=== PATIENT | female | born 1940 | race Caucasian/White ===

== ENCOUNTER 2019-01-14 23:03 | Emergency (ER) | payer OTHER ==
--- OUTSIDE RECORDS SUMMARY | 2019-01-14 23:08 | XMS REPORT | Continuity of Care Document ---
:1940 Author Organization [facility] Information [place] Care Team Providers Name Role Phone [facility] Information [place] Unavailable Unavailable Problems Problem Status Onset Classification Date Comments Source Date Reported R51 - HEADACHE Active 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 012 [facility] Brain aneurysm Resolved Problem 07/06/2018 [facility] 011 Neuro, OP Imaging - [facility] Operative procedure on Active Problem 10/17/2011 [facility] cerebral aneurysm [address] [place] [address] Operative procedure on Active Problem 07/06/2018 [facility] cerebral aneurysm 011 Neuro, OP Imaging - [facility] RIGHT SIDED Active [facility] COMMUNICATING SEGMENT [address] [place] [address] Center Benign essential Active Problem 07/06/2018 Data [facility] hypertension1 009 migrated Neuro,[facility] from [facility] OP Centricity Imaging - on 11/10/14. [facility] Dermatitis3 Active Problem 07/06/2018 Data [facility] 008 migrated Neuro,[facility] from [facility] OP Centricity Imaging - on 11/10/14. [facility] Overweight6 Active Problem 07/06/2018 Data [facility] 008 migrated Neuro,[facility] from [facility] OP Centricity Imaging - on 11/10/14. [facility] Degenerative joint Active Problem 07/06/2018 Data [facility] disease involving 007 migrated Neuro, multiple joints2 from [facility] OP Centricity Imaging - on 11/10/14. [facility] Knee joint pain Resolved Problem 07/06/2018 [facility] 005 Neuro, OP Imaging - [facility] Cerebral angiogram Active Problem 10/17/2011 [facility] Cerebral angiogram Active Problem 07/06/2018 [facility] Neuro, OP Imaging - [facility] Dyslipidemia4 Active Problem 07/06/2018 Data [facility] migrated Neuro, from GE OP Centricity Imaging - on 11/10/14. 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 [place] Hypercholesterolemia Active Problem 07/06/2018 [facility] Neck pain Active Problem 07/06/2018 [facility] - [place] Osteoarthritis Active Problem 07/06/2018 [facility] Simple obesity Active Problem 07/06/2018 [facility] Imaging - [place] NONRUPT CEREBRAL Active [facility] ADMINISTRTVE ENCOUNT Active [facility] Medications Medication Details Route Status Patient Ordering Order Source Instructions Provider Date Aspirin 325 MG 325 mg, 1 tab, No Longer Enteric Coated Route: PO, Active 2018 [place] Tablet Drug form: [facility] ECTAB, Daily, Dosing Weight 87.6, kg, Start date: 07/05/18 9:00:00 HERBICIDE SPRAYER, Duration: 30 day, Stop date: 08/03/18 9:00:00 CSTNotes: (Do Not Crush) Do not crush or chew. celecoxib 200 mg, 2 cap, Inactive Route: PO, 2018 [place] Drug form: [facility] CAP, BID, Dosing Weight 87.6, kg, Start date: 07/04/18 17:00:00 HERBICIDE SPRAYER, Duration: 30 day, Stop date: 08/03/18 9:00:00 CSTNotes: NSAID. Please check indication. Not for seizure. (Same As: CeleBREX ) Zofran 4 mg, 1 tab, Inactive Route: PO, 2019 [place] Drug form: [facility] TAB, Q8H, Dosing Weight 87.6, kg, Start date: 07/04/18 16:00:00 HERBICIDE SPRAYER, Duration: 30 day, Stop date: 08/03/18 8:00:00 CSTNotes: (Same as: Zofran) Ondansetron 4 mg, Route: Inactive PO, Q8H, 2019 [place] Dosing Weight Hospital 87.6, kg, Start date: 07/04/18 16:00:00 HERBICIDE SPRAYER, Duration: 30 day, Stop date: 08/03/18 8:00:00 HERBICIDE SPRAYER Acetaminophen 1,000 mg, 2 Inactive tab, Route: 2019 [place] PO, Drug form: Hospital TAB, TID, Dosing Weight 87.6, kg, Start date: 07/04/18 13:00:00 HERBICIDE SPRAYER, Duration: 30 day, Stop date: 08/03/18 9:00:00 CSTNotes: Max acetaminophen 4000 mg/day (4 gm/day). (Same as: Tylenol Extra Strength) tramadol 100 mg, 2 tab, Inactive hydrochloride 50 Route: PO, 2019 [place] MG Oral Tablet Drug form: Hospital TAB, Q6H, Dosing Weight 87.6, kg, Start date: 07/04/18 12:00:00 HERBICIDE SPRAYER, Duration: 30 day, Stop date: 08/03/18 6:00:00 CSTNotes: Not to exceed 400mg/day. (Same As: Ultram) tramadol 100 mg=2 tab, Active hydrochloride 50 PO, Q6H, # 100 2019 [place] MG Oral Tablet tab, 0 Hospital Refill(s) celecoxib 200 mg 200 mg, PO, Active oral capsule BID, # 60 2019 [place] caplet, 1 Hospital Refill(s), Pharmacy: [place] [id number] Acetaminophen 1,000 mg, PO, Active TID, 0 2019 [place] Refill(s) [facility] Aspirin 325 MG 325 mg, PO, Active Enteric Coated Daily, 0 2019 [place] Tablet Refill(s) [facility] ketOROLAC 30 15 mg, 0.5 mL, Inactive mg/mL injectable Route: IVP, 2019 [place] solution Drug form: Hospital INJ, Q6H, Dosing Weight 87.6, kg, PRN Pain Score 7-10, Start date: 07/04/18 10:15:00 HERBICIDE SPRAYER, Duration: 1 doses or times, Stop date: Limited # of timesNotes: (Same as:Toradol) IV bolus must be given >15 seconds. Give IM administration slowly and deeply into the muscle. Not for use > 4 days MEDICATION WASTE Product Size: 30 mg Product Wasted: ___ mg Aluminum 30 mL, Route: Inactive Hydroxide 40 PO, Drug Form: 2019 [place] MG/ML / Magnesium SUSP, Dosing Hospital Hydroxide 40 Weight 87.6, MG/ML / kg, Q4H, PRN Simethicone 4 Indigestion, MG/ML Oral Start date: Suspension 07/04/18 10:15:00 HERBICIDE SPRAYER, Duration: 30 day, Stop date: 08/03/18 10:14:00 CSTNotes: (aluminum hydroxide-magn esium hyd-simethicon e [phone]/5 ml 30 ml ud WILLIAM) Morphine 2 mg, 1 mL, Inactive Route: IVP, 2018 [place] Drug form: [facility] SOLN, Q4H, Dosing Weight 87.6, kg, PRN Pain Score 7-10, Start date: 07/04/18 10:15:00 HERBICIDE SPRAYER, Stop date: 07/04/18 22:00:00 HERBICIDE SPRAYER Oxycodone 5 mg, 1 tab, Inactive Hydrochloride 5 Route: PO, 2019 [place] MG Oral Tablet Drug form: [facility] TAB, Q4H, Dosing Weight 87.6, kg, PRN Pain Score 4-6, Start date: 07/04/18 10:15:00 HERBICIDE SPRAYER, Duration: 30 day, Stop date: 08/03/18 10:14:00 CSTNotes: (Same as: Roxicodone) Ancef 2 gm, 20 mL, Inactive Route: IVPB, 2018 [place] Drug form: [facility] INJ, ONCE, Dosing Weight 87.6, kg, Start date: 07/04/18 10:13:00 HERBICIDE SPRAYER, Stop date: 07/04/18 10:13:00 HERBICIDE SPRAYER, ABX Indication: Surgical ProphylaxisNot es: (Same As: Ancef) Inject direct IV slowly over 5 minutes. Cefazolin 1gm in sterile water 10mL 1/2 NS 1,000 mL 1,000 mL, Inactive Rate: 75 2019 [place] ml/hr, Infuse Hospital over: 13.3 hr, Route: IV, Dosing Weight 87.6 kg, Total Volume: 1,000, Start date: 07/04/18 10:13:00 HERBICIDE SPRAYER, Duration: 30 day, Stop date: 08/03/18 10:12:00 HERBICIDE SPRAYER, 2, m2 Promethazine 12.5 mg, 0.5 Inactive mL, Route: IM, 2018 [place] Drug form: Hospital INJ, ONCE, Dosing Weight 87.6, kg, PRN Nausea & Vomiting, Start date: 07/04/18 9:51:00 CSTNotes: Do not give IV push. (Same as: Phenergan) Meperidine 12.5 mg, 0.5 Inactive mL, Route: 2019 [place] IVP, Drug Hospital form: INJ, Q30Min, Dosing Weight 87.6, kg, PRN Other -See Comment, For shivering, Start date: 07/04/18 9:51:00 HERBICIDE SPRAYER, Duration: 2 doses or times, Stop date: Limited # of timesNotes: (Same as: Demerol) "Use Precaution in Elderly, Seizure disorders, and Renal impairment" Ondansetron 4 mg, 2 mL, Inactive Route: IVP, 2018 [place] Drug form: Hospital INJ, ONCE, Dosing Weight 87.6, kg, PRN Nausea & Vomiting, Start date: 07/04/18 9:51:00 CSTNotes: (Same as: Zofran) MEDICATION WASTE Product Size: 4 mg Product Wasted: ___ mg Albuterol 0.83 2.49 mg, 3 mL, Inactive MG/ML Inhalant Route: NEB, 2018 [place] Solution Drug form: Hospital SOLN, Q20Min, Dosing Weight 87.6, kg, PRN Wheezing, Priority: STAT, Start date: 07/04/18 9:51:00 HERBICIDE SPRAYER, Duration: 30 day, Stop date: 08/03/18 9:50:00 CSTNotes: SEE RT DOCUMENTATION (Same as: Proventil) Diphenhydramine 12.5 mg, 0.25 Inactive mL, Route: 2019 [place] IVP, Drug Hospital form: INJ, Q6H, Dosing Weight 87.6, kg, PRN Itching, Start date: 07/04/18 9:51:00 HERBICIDE SPRAYER, Duration: 30 day, Stop date: 08/03/18 9:50:00 CSTNotes: (Same as: Benadryl) Naloxone 0.4 mg, 1 mL, Inactive Route: IVP2018 [place] Drug form: Hospital INJ, Q2MIN, Dosing Weight 87.6, kg, PRN Narcotic Reversal, Start date: 07/04/18 9:51:00 HERBICIDE SPRAYER, Duration: 8 doses or times, Stop date: Limited # of timesNotes: Same as Narcan Flumazenil 0.2 mg, 2 mL, Inactive Route: IVP2018 [place] Drug form: Hospital INJ, PRN, Dosing Weight 87.6, kg, PRN Benzodiazepine Reversal, Initial dose, Start date: 07/04/18 9:51:00 HERBICIDE SPRAYER, Duration: 30 day, Stop date: 08/03/18 9:50:00 CSTNotes: (Same as: Romazicon) Morphine 4 mg, 1 mL, Inactive Route: IVP2018 [place] Drug form: Hospital SOLN, Q5Min, Dosing Weight 87.6, kg, PRN Pain Score 7-10, Start date: 07/04/18 9:51:00 HERBICIDE SPRAYER, Duration: 3 doses or times, Stop date: 07/04/18 22:00:00 CSTNotes: (Same as:MORPhine Sulfate) Hydralazine 10 mg, 0.5 mL, Inactive Route: IVP2018 [place] Drug form: Hospital INJ, Q20Min, Dosing Weight 87.6, kg, PRN Elevated BP, Start date: 07/04/18 9:51:00 HERBICIDE SPRAYER, Duration: 2 doses or times, Stop date: Limited # of timesNotes: (Same as: Apresoline) Push over 5 minutes Ketorolac 15 mg, 0.5 mL, Inactive Route: IVP2018 [place] Drug form: Hospital INJ, ONCE, Dosing Weight 87.6, kg, Start date: 07/04/18 9:51:00 HERBICIDE SPRAYER, Stop date: 07/04/18 9:51:00 CSTNotes: (Same as:Toradol) IV bolus must be given >15 seconds. Give IM administration slowly and deeply into the muscle. Not for use > 4 days MEDICATION WASTE Product Size: 30 mg Product Wasted: _15__ mg Acetaminophen 1,000 mg, 2 Inactive tab, Route: 2019 [place] PO, Drug form: Hospital TAB, ONCE, Dosing Weight 87.6, kg, PRN Pain Score 1-3, Start date: 07/04/18 9:51:00 CSTNotes: Max acetaminophen 4000 mg/day (4 gm/day). (Same as: Tylenol Extra Strength) Metoprolol 1 mg, 1 mL, Inactive Route: IVP, 2018 [place] Drug form: Hospital INJ, Q5Min, Dosing Weight 87.6, kg, PRN Other -See Comment, Start date: 07/04/18 9:51:00 HERBICIDE SPRAYER, Duration: 5 doses or times, Stop date: Limited # of timesNotes: (Same as: Lopressor) Push over 2 minutes Sodium Chloride Route: IV, Inactive 0.9% IV (ANES) 50 Total Volume: 2018 [place] mL 50, Start Hospital date: 07/04/18 9:27:00 HERBICIDE SPRAYER, Stop date: 07/04/18 10:27:00 HERBICIDE SPRAYER Sodium Chloride Route: IV, Inactive 0.9% IV (ANES) Total Volume: 2018 [place] 1000 mL 1,000, Start Hospital date: 07/04/18 9:04:00 HERBICIDE SPRAYER, Stop date: 07/04/18 10:04:00 HERBICIDE SPRAYER glycopyrrolate Route: IV, Inactive (ANES) Drug form: 2018 [place] INJ, ONCE, Hospital Stop date: 07/04/18 8:54:00 HERBICIDE SPRAYER dexamethasone Route: IV, Inactive (ANES) Drug form: 2019 [place] INJ, ONCE, Hospital Stop date: 07/04/18 8:54:00 HERBICIDE SPRAYER ondansetron Route: IV, Inactive (ANES) Drug form: 2019 [place] INJ, ONCE, Hospital Stop date: 07/04/18 8:54:00 HERBICIDE SPRAYER famotidine (ANES) Route: IV, Inactive Drug form: 2019 [place] INJ, ONCE, Hospital Stop date: 07/04/18 8:54:00 HERBICIDE SPRAYER phenylephrine Route: IV, Inactive (ANES) Drug form: 2019 [place] INJ, ONCE, Hospital Stop date: 07/04/18 8:49:00 HERBICIDE SPRAYER methylergonovine Route: IM, Inactive (ANES) Drug form: 2019 [place] INJ, ONCE, Hospital Stop date: 07/04/18 8:29:00 HERBICIDE SPRAYER tranexamic acid Route: IV, Inactive (ANES) Drug form: 2019 [place] INJ, ONCE, Hospital Stop date: 07/04/18 8:24:00 HERBICIDE SPRAYER ePHEDrine (ANES) Route: IV, Inactive Drug form: 2019 [place] INJ, ONCE, Hospital Stop date: 07/04/18 8:24:00 HERBICIDE SPRAYER ceFAZolin (ANES) Route: IV, Inactive Drug form: 2019 [place] INJ, ONCE, Hospital Stop date: 07/04/18 7:59:00 HERBICIDE SPRAYER midazolam (ANES) Route: IV, Inactive Drug form: 2019 [place] SOLN, ONCE, Hospital Stop date: 07/04/18 7:59:00 HERBICIDE SPRAYER bupivacaine Route: Inactive (ANES) INTRATHECAL, 2019 [place] Drug Form: Hospital INJ, ONCE, Stop date: 07/04/18 7:54:00 HERBICIDE SPRAYER propofol (ANES) Route: IV, Inactive 10 mg Drug form: 2018 [place] INJ, Start Hospital date: 07/04/18 7:30:00 HERBICIDE SPRAYER, Stop date: 07/04/18 8:30:00 HERBICIDE SPRAYER Lactated Ringers Route: IV, Inactive Injection IV Total Volume: 2018 [place] (ANES) 1000 mL 1,000, Start Hospital date: 07/04/18 7:12:00 HERBICIDE SPRAYER, Stop date: 07/04/18 8:12:00 HERBICIDE SPRAYER Lyrica 75 mg, 1 cap, Inactive Route: PO, 2018 [place] Drug form: Hospital CAP, PRE OP, Start date: 07/04/18 6:00:00 HERBICIDE SPRAYER, Duration: 1 doses or timesNotes: (Same as: Lyrica) CeleBREX 400 mg, 4 cap, Inactive Route: PO, 2018 [place] Drug form: Hospital CAP, PRE OP, Start date: 07/04/18 6:00:00 HERBICIDE SPRAYER, Duration: 1 doses or timesNotes: NSAID. Please check indication. Not for seizure. (Same As: CeleBREX ) acetaminophen 1,000 mg, 2 Inactive tab, Route: 2019 [place] PO, Drug form: Hospital TAB, PRE OP, Start date: 07/04/18 6:00:00 HERBICIDE SPRAYER, Duration: 1 doses or timesNotes: Max acetaminophen 4000 mg/day (4 gm/day). (Same as: Tylenol Extra Strength) ceFAZolin 2 gm, 20 mL, Inactive Route: IV, 2018 [place] Drug form: Hospital INJ, PRE OP, Start date: 07/04/18 6:00:00 HERBICIDE SPRAYER, Duration: 1 doses or times, ABX Indication: Surgical ProphylaxisNot es: (Same As: Ancef) Inject direct IV slowly over 5 minutes. Cefazolin 1gm in sterile water 10mL Calcium Chloride 1,000 mL, Inactive 0.0014 MEQ/ML / Rate: 25 2018 [place] Potassium ml/hr, Infuse Hospital Chloride 0.004 over: 40 hr, MEQ/ML / Sodium Route: IV, Chloride 0.103 Dosing Weight MEQ/ML / Sodium 87.6 kg, Total Lactate 0.028 Volume: 1,000, MEQ/ML Injectable Start date: Solution 07/04/18 5:45:00 HERBICIDE SPRAYER, Duration: 30 day, Stop date: 08/03/18 5:44:00 HERBICIDE SPRAYER, 2, m2 Vitamin D2 50,000 50,000 Active intl units oral IntlUnit=1 2018 [place] capsule cap, PO, Hospital Daily, 0 Refill(s) Vitamin D2 PO, 0 Inactive Refill(s) 2019 [facility] nebivolol 20 MG 20 mg=1 tab, Active Oral Tablet PO, Daily, 0 2019 [place] [Bystolic] Refill(s) Hospital Hydrochlorothiazi 1 tab, PO, Active de 25 MG / Daily, 0 2019 [place] Losartan Refill(s) [facility] Potassium 100 MG Oral Tablet Flumazenil 0.2 mg, 2 mL, Inactive Route: IVP, 2016 [place] Drug form: Hospital INJ, PRN, Dosing Weight 84.091, kg, PRN Benzodiazepine Reversal, Initial dose, Start date: 01/21/17 11:43:00 CDT, Duration: 30 day, Stop date: 02/20/17 11:42:00 CDTNotes: (Same as: Romazicon) Naloxone 0.4 mg, 1 mL, Inactive Route: IVP2016 [place] Drug form: Hospital INJ, Q2MIN, Dosing Weight 84.091, kg, PRN Narcotic Reversal, Start date: 01/21/17 11:43:00 CDT, Duration: 8 doses or times, Stop date: Limited # of timesNotes: Same as Narcan Ondansetron 4 mg, 2 mL, Inactive Route: IVP2016 [place] Drug form: Hospital INJ, ONCE, Dosing Weight 84.091, kg, PRN Nausea & Vomiting, Start date: 01/21/17 11:43:00 CDTNotes: (Same as: Zofran) MEDICATION WASTE Product Size: 4 mg Product Wasted: ___ mg Ondansetron 4 mg, 2 mL, Inactive Route: IVP2016 [place] Drug form: Hospital INJ, ONCE, Dosing Weight 84.091, kg, PRN Nausea & Vomiting, Start date: 01/21/17 11:32:00 CDTNotes: (Same as: Zofran) MEDICATION WASTE Product Size: 4 mg Product Wasted: ___ mg Flumazenil 0.2 mg, 2 mL, Inactive Route: IVP2016 [place] Drug form: Hospital INJ, PRN, Dosing Weight 84.091, kg, PRN Benzodiazepine Reversal, Initial dose, Start date: 01/21/17 11:32:00 CDT, Duration: 30 day, Stop date: 02/20/17 11:31:00 CDTNotes: (Same as: Romazicon) Naloxone 0.4 mg, 1 mL, Inactive Route: IVP2016 [place] Drug form: Hospital INJ, Q2MIN, Dosing Weight 84.091, kg, PRN Narcotic Reversal, Start date: 01/21/17 11:32:00 CDT, Duration: 8 doses or times, Stop date: Limited # of timesNotes: Same as Narcan Calcium Chloride 1,000 mL, Inactive 0.0014 MEQ/ML / Rate: 25 2016 [place] Potassium ml/hr, Infuse Hospital Chloride 0.004 over: 40 hr, MEQ/ML / Sodium Route: IV, Chloride 0.103 Dosing Weight MEQ/ML / Sodium 84.091 kg, Lactate 0.028 Total Volume: MEQ/ML Injectable 1,000, Start Solution date: 01/21/17 9:10:00 CDT, Duration: 12 hr, Stop date: 01/21/17 21:09:00 CDT Folic Acid 0.4 MG 0.4 mg=1 tab, Active Oral Tablet PO, Daily, # 2017 [place] 100 tab, 0 Hospital Refill(s) pitavastatin 2 MG 2 mg=1 tab, Active Oral Tablet PO, Bedtime, # 2017 [place] [Livalo] 30 tab, 3 Hospital Refill(s) Chlorthalidone 25 25 mg=1 tab, Active MG Oral Tablet PO, Daily, # 2017 [place] 30 tab, 0 Hospital Refill(s) Zofran 4 mg, 2 mL, IVP No Longer Ramona [facility] Route: IVP, Active 2011 [facility] Drug form: Center INJ, Q4H, PRN Nausea & Vomiting, Start date: 10/15/11 12:21:00, Duration: 30 day, Stop date: 11/14/11 12:20:00 Sodium Chloride 1,000 mL, IV No Longer Ramona Kathryn 0.9% IV 1,000 mL Rate: 125 Active 2011 [facility] ml/hr, Infuse Center over: 8 hr, Route: IV, Total Volume: 1,000, Start date: 10/15/11 12:10:00, Duration: 30 day, Stop date: 11/14/11 12:09:00 Bystolic 10 mg 10 mg, 1 tab, PO Active [facility] oral tablet PO, Daily, 2011 Medical tab, Center Substitution Allowed, TAB Zocor 20 mg, 1 tab, PO No Longer Voda Kathryn Route: PO, Active 2010 [facility] Drug form: Center TAB, Bedtime, Start date: 04/30/11 21:00:00, Duration: 30 day, Stop date: 05/29/11 21:00:00 Zetia 10 mg, 1 tab, PO No Longer Voda [facility] Route: PO, Active 2010 Medical Drug form: [place] TAB, Bedtime, Start date: 04/30/11 21:00:00, Duration: 30 day, Stop date: 05/29/11 21:00:00 MaxEPA 2 gm, 2 cap, PO No Longer Restrepo [facility] Route: PO, Active 2010 Medical Drug form: [place] CAP, BID, Start date: 04/30/11 11:00:00, Duration: 30 day, Stop date: 05/30/11 9:00:00 Exforge 10 mg-320 1 tab, Route: PO No Longer Voda [place] mg oral tablet PO, Daily, Active 2010 Medical Start date: [place] 04/30/11 9:00:00, Duration: 30 day, Stop date: 05/29/11 9:00:00 Diovan 320 mg, 2 tab, PO No Longer Lombardi [facility] Route: PO, Active 2010 Medical Drug form: [place] TAB, Daily, Start date: 04/30/11 9:00:00, Duration: 30 day, Stop date: 05/29/11 9:00:00 Norvasc 10 mg, 1 tab, PO No Longer Lombardi [facility] Route: PO, Active 2010 Medical Drug form: [place] TAB, Daily, Start date: 04/30/11 9:00:00, Duration: 30 day, Stop date: 05/29/11 9:00:00 Vytorin 10/20 1 tab, Route: PO No Longer Voda [facility] PO, Daily, Active 2010 Medical Start date: [place] 04/30/11 9:00:00, Duration: 30 day, Stop date: 05/29/11 9:00:00 omega-3 Route: PO, PO No Longer Restrepo [facility] polyunsaturated Drug Form: Active 2010 Medical fatty acids with CAP, BID, [place] Vitamin B Complex Start date: oral capsule 04/30/11 9:00:00, Duration: 30 day, Stop date: 05/29/11 17:00:00 docusate sodium 100 mg, 1 cap, PO Active [place] 100 mg oral PO, Q12H, 40 2010 Medical capsule cap, [place] Substitution Allowed, CAP acetaminophen-hyd 2 tab, PO, PO Active Lawrence Kathryn rocodone 325 mg-5 Q4H, PRN, 30 2010 Medical mg oral tablet tab, Pain Center Score 1-3, Substitution Allowed, Maintenance, (not to exceed 4000 mg acetaminophen per day), TAB(not to exceed 4000 mg acetaminophen per day) docusate 100 mg, 1 cap, PO No Longer Nando [facility] Route: PO, Active 2010 Medical Drug form: [place] CAP, Q12H, Start date: 04/29/11 21:00:00, Duration: 30 day, Stop date: 05/29/11 9:00:00 Zofran 4 mg, 2 mL, IVP No Longer Nando [facility] Route: IVP, Active 2010 Medical Drug form: [place] INJ, Q8H, PRN Nausea, Start date: 04/29/11 17:16:00, Duration: 30 day, Stop date: 05/29/11 17:15:00 famotidine 20 mg 20 mg, 1 tab, PO No Longer Nando [facility] oral tablet Route: PO, Active 2010 Medical Drug form: [place] TAB, BID, Start date: 04/29/11 17:00:00, Duration: 30 day, Stop date: 05/29/11 9:00:00 labetalol 10 mg, 2 mL, IVP No Longer Voda [facility] Route: IVP, Active 2010 Medical Drug form: [place] INJ, Q15Min, PRN Hypertension, Start date: 04/29/11 16:03:00, Duration: 30 day, Stop date: 05/29/11 16:02:00 normal saline 1,000 mL, IV No Longer Yobany [facility] 0.9% IV 1,000 mL Rate: 75 Active 2010 Medical ml/hr, Infuse Center over: 13.3 hr, Route: IV, Total Volume: 1,000, Start date: 04/29/11 16:02:00, Duration: 30 day, Stop date: 05/29/11 16:01:00 acetaminophen-hyd 1 tab, Route: PO No Longer Nando Kathryn rocodone 325 mg-5 PO, Drug Form: Active 2010 Medical mg oral tablet TAB, Q4H, PRN Center Pain Score 1-3, Start date: 04/29/11 13:53:00, Duration: 30 day, Stop date: 05/29/11 13:52:00 midazolam 1 mg, Route: IV No Longer [facility] 04/29[facility] IV, ONCE, Active 2010 Medical Start date: [place] 04/29/11 13:40:00, Stop date: 04/29/11 13:40:00 labetalol 5 mg, 1 mL, IVP No Longer Larose [facility] Route: IVP, Active 2010 Medical Drug form: Center INJ, Q5Min, PRN Elevated BP, Start date: 04/29/11 12:50:00, Duration: 5 doses or times, Stop date: 04/29/11 22:00:00 hydrALAZINE 5 mg, 0.25 mL, IVP No Longer Larose [facility] Route: IVP, Active 2010 Medical Drug form: Center INJ, Q5Min, PRN Elevated BP, Start date: 04/29/11 12:50:00, Duration: 4 doses or times, Stop date: Limited # of times ondansetron 4 mg, 2 mL, IVP No Longer Larose [facility] Route: IVP, Active 2010 Medical Drug form: Center INJ, ONCE, Start date: 04/29/11 12:50:00, Stop date: 04/29/11 12:50:00 promethazine 6.25 mg, 0.25 IVPB No Longer Larose [facility] mL, Route: Active 2010 Medical IVPB, Drug Center form: INJ, ONCE, Start date: 04/29/11 12:50:00, Stop date: 04/29/11 12:50:00 acetaminophen-hyd 2 tab, Route: PO No Longer [facility] 04/29[facility] rocodone 325 mg-5 PO, Drug Form: Active 2010 Medical mg oral tablet TAB, Q4H, PRN Center Pain Score 4-6, Start date: 04/29/11 12:50:00, Duration: 30 day, Stop date: 05/29/11 12:49:00 meperidine 12.5 mg, 0.5 IVP No Longer [facility] 04/29[facility] mL, Route: Active 2010 Medical IVP, Drug Center form: INJ, Q30Min, PRN Other -See Comment, For shivering, Start date: 04/29/11 12:50:00, Duration: 2 doses or times, Stop date: 04/30/11 0:00:00 hydromorphone 0.5 mg, 0.25 IVP No Longer Larose [facility] mL, Route: Active 2010 Medical IVP, Drug Center form: INJ, Q5Min, PRN Pain Score 4-6, Start date: 04/29/11 12:50:00, Duration: 5 doses or times, Stop date: 04/29/11 21:00:00 morphine Sulfate 2 mg, 1 mL, IVP No Longer Larose [facility] Route: IVP, Active 2010 Medical Drug form: Center INJ, Q5Min, PRN Pain Score 4-6, Start date: 04/29/11 12:50:00, Duration: 8 doses or times, Stop date: 04/30/11 0:00:00 Dilaudid 0.5 mg, Route: IV No Longer [place] [facility] IV, ONCE, PRN Active 2010 Medical Pain, Start Center date: 04/29/11 12:39:00 Lactated Ringers 1,000 mL, IV No Longer [facility] IV 1,000 mL Rate: [address] [place] [address] ml/hr, Infuse Center over: 25 hr, Route: IV, Total Volume: 1,000, Start date: 04/29/11 8:13:00, Duration: 30 day, Stop date: 05/29/11 8:12:00 omega-3 2, PO, BID, PO Active Nando [facility] polyunsaturated Substitution 2010 Medical fatty acids 1000 Allowed Center mg oral capsule zolpidem 5 mg 1 tab, PO, PO Active [facility] oral tablet PRN, Sleep, 2010 Medical Substitution [place] Allowed Exforge HCT 10 1 tab, PO, PO Active [facility] 04/27[facility] mg-320 mg-25 mg Daily, 30 tab, 2010 Medical oral tablet Substitution Center Allowed, Maintenance, TAB Vytorin 10 mg-20 1 tab, PO, PO Active [facility] 04/27[place] [facility] oral tablet Daily, 30 tab, 2010 [facility] [place] Allowed, Maintenance, TAB Allergies, Adverse Reactions, Alerts No Known Medication Allergies Immunizations No Data Provided for This Section Results Order Name Results Value Reference Date Interpretation Comments Source Range CHEM PANEL Albumin Lvl 4.0 3.5 - 5.0 06/20 [facility] ELECTROLYTE AGAP 10.5 10.0 - 06/20 S 20.0 [facility] ELECTROLYTE eGFR 54 06/20 Result Comment: [facility] calculated using the CKD-EPI formula. In most young, healthy individuals the eGFR will be >90 mL/min/1.73m2 . The eGFR declines with age. An eGFR of 60-89 may be normal in some populations, particularly the elderly, for whom the CKD-EPI formula has not been extensively validated. Use of the eGFR is not recommended in the following populations:< br/>
Elena viduals with unstable creatinine concentration s, including patients and those with serious co-morbid conditions.<b r/>
Patie nts with extremes in muscle mass or diet.

The data above are obtained from the National Kidney Disease Education Program (NKDEP) which additionally recommends that when the eGFR is used in patients with extremes of body mass index for purposes of drug dosing, the eGFR should be multiplied by the estimated BMI. ELECTROLYTE BUN 22 7 - 22 06/20 [facility] ELECTROLYTE Sodium Lvl 137 135 - 145 06/20 [facility] ELECTROLYTE Creatinine 1.00 0.50 - 06/20 S Lvl 1. [facility] ELECTROLYTE Potassium Lvl 3.5 3.5 - 5.1 06/20 [facility] ELECTROLYTE Chloride Lvl 102 95 - 109 06/20 [facility] ELECTROLYTE Calcium Lvl 9.5 8.5 - 10.5 06/20 [facility] ELECTROLYTE CO2 28 24 - 32 06/20 [facility] ELECTROLYTE Glucose Lvl 104 70 - 99 06/20 [facility] HEMATOLOGY RBC X 10x6 4.28 4.20 - 06/20 5. [facility] HEMATOLOGY WBC X 10x3 6.9 3.7 - 10.4 06/20 [facility] HEMATOLOGY Hgb 13.0 12.0 - 06/20 MH 16.0 [facility] HEMATOLOGY Hct 39.8 36.0 - 06/20 48.0 [facility] HEMATOLOGY Platelet 254 133 - 450 06/20 [facility] HEMATOLOGY MPV 9.7 7.4 - 10.4 06/20 [facility] HEMATOLOGY MCHC 32.7 32.0 - 06/20 MH 36.0 [facility] HEMATOLOGY MCV 93.0 80.0 - 06/20 MH 98.0 [facility] HEMATOLOGY RDW 13.3 11.5 - 06/20 MH 14.5 [facility] HEMATOLOGY MCH 30.4 27.0 - 06/20 MH 31.0 [facility] HEMATOLOGY Lymphocytes # 1.6 1.0 - 5.5 06/20 [facility] HEMATOLOGY Neutrophils # 4.6 1.5 - 8.1 06/20 [facility] HEMATOLOGY Monocytes # 0.6 0.0 - 0.8 06/20 [facility] HEMATOLOGY Eosinophils # 0.2 0.0 - 0.5 06/20 [facility] HEMATOLOGY Segs 65.6 45.0 - 06/20 MH 75.0 [facility] HEMATOLOGY Lymphocytes 22.4 20.0 - 06/20 MH 40.0 [facility] HEMATOLOGY Eosinophils 2.4 0.0 - 4.0 06/20 [facility] HEMATOLOGY Monocytes 9.0 2.0 - 12.0 06/20 [facility] HEMATOLOGY Basophils 0.6 0.0 - 1.0 06/20 [facility] URINE CHEM U Cotinine Negative Negative 06/20 Lvl (06/20/18 10:03 AM) [facility] BEDSIDE Gluc POC 96.0 65 - 110 04/30 Normal <sup>2</sup>I [facility] GLUCOSE [facility] nterpretive Medical TESTING Data: Center Upper Reportable Limit: 200 mg/dL. BEDSIDE Comment1 Notify 04/30 NA [facility] GLUCOSE RN/ /2010 [facility] TESTING Center BEDSIDE Gluc POC 117.0 65 - 110 04/30 HI <sup>3</sup>I [facility] GLUCOSE [facility] nterpretive Medical TESTING Data: [place] Upper Reportable Limit: 200 mg/dL. CHEMISTRY Phosphorus 3.4 2.5 - 4.5 04/30 Normal [facility] CHEMISTRY Ca Norm mgdL 4.84 4.65 - 04/30 Normal [place] 5.20 Medical Center CHEMISTRY Ca Ion mgdL 4.8 4.65 - 04/30 Normal [place] 5. Medical Center CHEMISTRY Ca Norm 1.21 1.16 - 04/30 Normal [place] 1. Medical Center CHEMISTRY Ca Ion 1.2 1.16 - 04/30 Normal [place] 1.30 Medical Center CHEMISTRY Magnesium Lvl 2.0 1.8 - 2.4 04/30 Normal [facility] CHEMISTRY Creatinine 0.8 0.5 - 1.4 04/30 Normal [facility] l Medical Center CHEMISTRY Chloride Lvl 105.0 95 - 109 04/30 Normal [facility] CHEMISTRY CO2 23.0 24 - 32 04/30 LOW [facility] CHEMISTRY Glucose Lvl 101.0 04/30 NA <sup>5</sup>I nterpretive Medical Data: Center Reference Ranges : 0 - 7 days : 41 - 90 mg/dL 7 days - 150 yrs : 70 - 99 mg/dL (fasting), based on the clinical recommendatio ns of the [place] [employer]. CHEMISTRY BUN 12.0 7 - 22 04/30 Normal [facility] CHEMISTRY Calcium Lvl 8.3 8.5 - 10.5 04/30 LOW [facility] CHEMISTRY Sodium Lvl 138.0 135 - 145 04/30 Normal [facility] CHEMISTRY Potassium Lvl 4.2 3.5 - 5.1 04/30 Normal [facility] CHEMISTRY AGAP 14.2 10.0 - 04/30 Normal [place] 20.0 Medical Center HEMATOLOGY Basophils 0.4 0.0 - 1.0 04/30 Normal [facility] HEMATOLOGY Eosinophils 0.9 0.0 - 4.0 04/30 Normal [facility] HEMATOLOGY Monocytes 5.5 2.0 - 12.0 04/30 Normal [facility] HEMATOLOGY Lymphocytes 14.9 20.0 - 04/30 LOW [place] 40.0 /2010 Medical Center HEMATOLOGY Segs 78.3 45.0 - 04/30 HI [place] 75.0 /2010 Medical Center HEMATOLOGY Basophils # 0.0 0.0 - 0.2 04/30 Normal [facility] HEMATOLOGY Eosinophils # 0.1 0.0 - 0.5 04/30 Normal [facility] HEMATOLOGY Monocytes # 0.5 0.0 - 0.8 04/30 Normal [facility] HEMATOLOGY Lymphocytes # 1.3 1.0 - 5.5 04/30 Normal [facility] HEMATOLOGY Segs-Bands # 6.7 1.5 - 8.1 04/30 Normal [facility] HEMATOLOGY INR 1.07 0.85 - 04/30 Normal <sup>7</sup>I [facility] 1.17 nterpretive Medical Data: Center RECOMMENDED RANGES FOR PROTIME INR: 2.0-3.0 for most medical and surgical thromboemboli c states. 2.5-3.5 for artificial heart valves and recurrent embolism. INR SHOULD BE USED ONLY FOR PATIENTS ON STABLE ANTICOAGULANT THERAPY. HEMATOLOGY PTT 31.3 22.9 - 04/30 Normal <sup>10</sup> [facility] 35.8 Interpretive Medical Data: [facility] Therapeutic Range: 57 - 92 Seconds HEMATOLOGY PT 13.9 12.0 - 04/30 Normal [facility] 14.7 /2010 [facility] HEMATOLOGY MPV 9.1 7.4 - 10.4 04/30 Normal [facility] HEMATOLOGY Platelet 209.0 133 - 450 04/30 Normal [facility] HEMATOLOGY RDW 12.7 11.5 - 04/30 Normal [facility] 14.5 [facility] HEMATOLOGY MCHC 34.2 32.0 - 04/30 Normal [facility] 36.0 [facility] HEMATOLOGY WBC 8.6 3.7 - 10.4 04/30 Normal [facility] HEMATOLOGY RBC 3.58 4.20 - 04/30 LOW [facility] 5.40 /2010 [facility] HEMATOLOGY Hgb 11.2 12.0 - 04/30 LOW [facility] 16.0 /2010 [facility] HEMATOLOGY MCH 31.4 27.0 - 04/30 HI [facility] 31.0 /2010 [facility] HEMATOLOGY MCV 92.0 81.0 - 04/30 Normal [facility] 99.0 [facility] HEMATOLOGY Hct 32.9 36.0 - 04/30 LOW [facility] 48.0 /2010 [facility] BEDSIDE Gluc POC 89.0 65 - 110 04/30 Normal <sup>4</sup>I [facility] GLUCOSE [place] /2010 nterpretive Medical TESTING Data: Center Upper Reportable Limit: 200 mg/dL. BEDSIDE Comment1 Notify 04/30 NA [facility] GLUCOSE RN/MD /2010 Medical TESTING Center BEDSIDE Comment1 Notify 04/30 NA [facility] GLUCOSE RN/MD /2010 Medical TESTING Center CHEMISTRY Ca Ion mgdL 4.32 4.65 - 04/29 [facility] [place] 5. Medical Center CHEMISTRY Ca Norm mgdL 4.2 4.65 - 04/29 [facility] [place] 5. Medical Center CHEMISTRY Ca Ion 1.08 1.16 - 04/29 [facility] [place] 1. Medical Center CHEMISTRY Ca Norm 1.05 1.16 - 04/29 [facility] [place] 1. Medical Center CHEMISTRY Phosphorus 3.2 2.5 - 4.5 04/29 Normal [facility] CHEMISTRY Magnesium Lvl 1.9 1.8 - 2.4 04/29 Normal [facility] HEMATOLOGY Basophils # 0.0 0.0 - 0.2 04/29 Normal [facility] HEMATOLOGY Eosinophils # 0.0 0.0 - 0.5 04/29 Normal [facility] HEMATOLOGY Monocytes # 0.5 0.0 - 0.8 04/29 Normal Medical [place] HEMATOLOGY Lymphocytes # 1.3 1.0 - 5.5 04/29 Normal [facility] HEMATOLOGY Segs-Bands # 9.4 1.5 - 8.1 04/29 [facility] HEMATOLOGY Basophils 0.3 0.0 - 1.0 04/29 Normal [facility] HEMATOLOGY Segs 83.3 45.0 - 04/29 [facility] [place] 75.0 Medical Center HEMATOLOGY Eosinophils 0.3 0.0 - 4.0 04/29 Normal [facility] HEMATOLOGY Monocytes 4.6 2.0 - 12.0 04/29 Normal [facility] HEMATOLOGY Lymphocytes 11.5 20.0 - 04/29 [facility] [place] 40.0 Medical [place] HEMATOLOGY Plt Morph Normal 04/29 [facility] (04/29/2011 16:20:00) ?? [facility] HEMATOLOGY RBC Morph Normal 04/29 [facility] (04/29/2011 16:20:00) ?? Medical Center HEMATOLOGY MPV 9.4 7.4 - 10.4 04/29 Normal 2010 [facility] HEMATOLOGY Platelet 200.0 133 - 450 04/29 Normal [place] /2010 [facility] HEMATOLOGY WBC 11.2 3.7 - 10.4 04/29 [place] /2010 [facility] HEMATOLOGY MCV 92.7 81.0 - 04/29 Normal [facility] 99.0 /2010 [facility] HEMATOLOGY MCHC 33.5 32.0 - 04/29 Normal [place] 36.0 /2010 [facility] HEMATOLOGY RDW 12.9 11.5 - 04/29 Normal [place] 14.5 /2010 [facility] HEMATOLOGY MCH 31.1 27.0 - 11 HI [place] 31.0 /2010 [facility] HEMATOLOGY Hct 34.9 36.0 - 04/29 LOW [place] 48.0 /2010 [facility] HEMATOLOGY RBC 3.76 4.20 - 04/29 LOW [facility] 5.40 /2010 [facility] HEMATOLOGY Hgb 11.7 12.0 - 04/29 LOW [facility] 16.0 /2010 [facility] HEMATOLOGY PTT 29.8 22.9 - 04/29 Normal <sup>11</sup> [facility] 35.8 Interpretive Medical Data: [facility] Center Therapeutic Range: 57 - 92 Seconds HEMATOLOGY PT 13.5 12.0 - 04/29 Normal [facility] 14.7 /2010 [facility] HEMATOLOGY INR 1.03 0.85 - 04/29 Normal <sup>8</sup>I [facility] 1.17 nterpretive Medical Data: Center RECOMMENDED RANGES FOR PROTIME INR: 2.0-3.0 for most medical and surgical thromboemboli c states. 2.5-3.5 for artificial heart valves and recurrent embolism. INR SHOULD BE USED ONLY FOR PATIENTS ON STABLE ANTICOAGULANT THERAPY. BACTERIAL - MRSA by PCR Negative 1 04/29 Normal <sup>1</sup>I [facility] SEROLOGY (04/29/2011 15:00:00) ?? nterpretive Medical Data: Center INTERPRETATIO N: Negative..... .No MRSA DNA detected by PCR Positive..... .MRSA DNA detected by PCR ASSAY LIMITATIONS: This is a screening test for colonization by MRSA. A positive test result indicates the patient is colonized by MRSA, but does not necessarily mean that an infection is present or that treatment is necessary. Likewise, a negative test does not exclude colonization or infection. Patients should be evaluated clinically for symptoms and signs of infection before making therapeutic decisions. Routine decolonizatio n is discouraged and should only be considered for select patients after consultation with an infectious diseases specialist. Microbiolog Culture: 04/29 [facility] y Medical [facility] Center Screen BLOOD BANK Antibody Scrn Negative 04/27 Normal [facility] RESULTS (04/27/2011 14:35:00) ?? [facility] Center BLOOD BANK ABO/Rh O POS 04/27 Unknown [facility] RESULTS [facility] CHEMISTRY Creatinine 0.7 0.5 - 1.4 04/27 Normal [place] Lvl [facility] CHEMISTRY Calcium Lvl 10.1 8.5 - 10.5 04/27 Normal [facility] CHEMISTRY BUN 20.0 7 - 22 04/27 Normal [facility] CHEMISTRY CO2 26.0 24 - 32 04/27 Normal [facility] CHEMISTRY Glucose Lvl 90.0 04/27 NA <sup>6</sup>I nterpretive Medical Data: Center Reference Ranges : 0 - 7 days : 41 - 90 mg/dL 7 days - 150 yrs : 70 - 99 mg/dL (fasting), based on the clinical recommendatio ns of the [place] [employer]. CHEMISTRY Chloride Lvl 102.0 95 - 109 04/27 Normal [facility] CHEMISTRY Potassium Lvl 3.9 3.5 - 5.1 04/27 Normal [facility] CHEMISTRY Sodium Lvl 141.0 135 - 145 04/27 Normal [facility] CHEMISTRY AGAP 16.9 10.0 - 04/27 Normal [place] 20.0 [facility] HEMATOLOGY Basophils # 0.0 0.0 - 0.2 04/27 Normal [facility] HEMATOLOGY Basophils 0.6 0.0 - 1.0 04/27 Normal [facility] HEMATOLOGY Segs-Bands # 4.5 1.5 - 8.1 04/27 Normal [facility] HEMATOLOGY Eosinophils # 0.1 0.0 - 0.5 04/27 Normal [facility] HEMATOLOGY Lymphocytes # 1.9 1.0 - 5.5 04/27 Normal [facility] HEMATOLOGY Monocytes # 0.4 0.0 - 0.8 04/27 Normal [facility] HEMATOLOGY Monocytes 5.7 2.0 - 12.0 04/27 Normal [facility] HEMATOLOGY Segs 64.8 45.0 - 04/27 Normal [place] 75.0 /2010 [facility] HEMATOLOGY Eosinophils 1.5 0.0 - 4.0 04/27 Normal /2010 [facility] HEMATOLOGY Lymphocytes 27.4 20.0 - 11 Normal [place] 40.0 /2010 [facility] HEMATOLOGY WBC 7.0 3.7 - 10.4 04/27 Normal [facility] HEMATOLOGY MCV 93.1 81.0 - 04/27 Normal [facility] 99.0 /2010 [facility] HEMATOLOGY MCH 31.3 27.0 - 11 HI [place] 31.0 /2010 [facility] HEMATOLOGY RBC 4.29 4.20 - 04/27 Normal [facility] 5.40 /2010 [facility] HEMATOLOGY Hct 40.0 36.0 - 04/27 Normal [facility] 48.0 /2010 [facility] HEMATOLOGY Hgb 13.4 12.0 - 04/27 Normal [place] 16.0 /2010 [facility] HEMATOLOGY MCHC 33.6 32.0 - 04/27 Normal [facility] 36.0 /2010 [facility] HEMATOLOGY MPV 9.6 7.4 - 10.4 04/27 Normal /2010 [facility] HEMATOLOGY RDW 12.9 11.5 - 04/27 Normal [facility] 14.5 /2010 [facility] HEMATOLOGY Platelet 235.0 133 - 450 04/27 Normal /2010 [facility] HEMATOLOGY PTT 31.5 22.9 - 04/27 Normal <sup>12</sup> [facility] 35.8 /2010 Interpretive Medical Data: [facility] Center Therapeutic Range: 57 - 92 Seconds HEMATOLOGY PT 13.2 12.0 - 04/27 Normal [facility] 14.7 [facility] HEMATOLOGY INR 1.0 0.85 - 04/27 Normal <sup>9</sup>I [facility] 1.17 nterpretive Medical Data: Center RECOMMENDED RANGES FOR PROTIME INR: 2.0-3.0 for most medical and surgical thromboemboli c states. 2.5-3.5 for artificial heart valves and recurrent embolism. INR SHOULD BE USED ONLY FOR PATIENTS ON STABLE ANTICOAGULANT THERAPY. 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 Pelvic and obturator rings are intact with normal limited pubic symphysis and sacroiliac joints. [facility] calcified vascular phlebo liths. Status post post left total hip arthroplasty which appears anatomically aligned without evidence for periprosthetic fracture. Expected surrounding postsurgical soft tissue gas collection. SL: SEEMA Hip 1 view bilateral Study: Hip 1 view bilateral DX 07/04/2018 7:27 AM HERBICIDE SPRAYER [facility] DX Clinical Indication: - LEFT TOTAL HIP ARTHROPLASTY; Comparison: None. FINDINGS: Intraoperative AP view of the left hip on 2 images for localization purposes. Left acetabular cup and femoral component appear in anatomic alignment. SL: SEEMA Brain wo contrast CT Clinical Indication: - R51 Headache. 77-year-old female with a headache and soreness at the base of the skull. Patient has a history of an aneurysm. 11/11/2017 [facility] Comparison: CTA brain March 17, 2011 TECHNIQUE: CT images were obtained from the foramen magnum to the vertex without the use of intravenous contrast on a multidetector CT. Coronal and sagittal reconstructions were obtained. CT radiation dose DLP: 1179 mGy-cm FINDINGS: BRAIN PARENCHYMA: A cluster of coils measures 16 mm x 14 mm x 13 mm is consistent with treatment of the right posterior communicating artery aneurysm. There is generalized brain parenchymal atrophy related to the patient's age. Mild nonspecific periventricular white matter disease changes are noted. Atherosclerotic calcifications are present within the carotid siphons and distal vertebral arteries. There are no focal mass lesions on this noncontrast head CT. There is no mass effect, midline shift or edema. There are no intra-axial or extra -axial fluid collections, intraventricular or intraparenchymal hemorrhage. There is no noncontrast CT evidence of a subacute stroke. The pineal, sellar, brainstem, cerebellum and skull base regions appear unremarkable. VENTRICLES: The lateral ventricles, third and fourth ventricles are normal for age. The basilar cisterns are normal. ORBITS, MASTOIDS AND PARANASAL SINUSES: The visualized orbits are unremarkable. An 11 mm x 5 mm soft tissue focus is seen posteriorly in the left maxillary sinus and another is seen along the anterior w all that measures 15 mm x 7 mm consistent with polyps or retention cysts. The remainder of the paranasal sinuses are relatively clear. The mastoid air cells are clear. SKULL: There are no calvarial abnormalities seen. If there is further concern for intracranial pathology or acute stroke, MRI of the brain may be performed for complete assessment. IMPRESSION: 1. Cluster of coils is seen consistent with the treatment of the right posterior communicating artery aneurysm seen on the arteriogram October 15, 2011. 2. Chronic age-related and small vessel ischemic changes without mass, hemorrhage or subacute stroke. SL: [id number] Consultation Notes No Data Provided for This Section Discharge Summaries No Data Provided for This Section History and Physicals No Data Provided for This Section Vital Signs Vital Sign Value Date Comments Source Respitory Rate 14 07/04/2018 [facility] Systolic (mm Hg) 131 07/04/2018 [facility] Diastolic (mm Hg) 79 07/04/2018 [facility] Respitory Rate 17 07/04/2018 [facility] Systolic (mm Hg) 136 07/04/2018 [facility] Diastolic (mm Hg) 78 07/04/2018 [facility] Respitory Rate 14 07/04/2018 [facility] Systolic (mm Hg) 127 07/04/2018 [facility] Diastolic (mm Hg) 68 07/04/2018 [facility] Heart Rate 69 07/04/2018 [facility] Temperature Oral (F) 98 F 06/20/2018 [facility] Heart Rate 72 06/20/2018 [facility] Height 160.02 cm 06/20/2018 [facility] BMI Calculated 34.21 06/20/2018 [facility] Weight 87.6 06/20/2018 [facility] BMI Calculated 32.77 11/02/2017 [facility] Height 162.56 cm 11/02/2017 [facility] Weight 86.591 11/02/2017 [facility] Heart Rate 67 11/02/2017 [facility] Systolic (mm Hg) 163 11/02/2017 [facility] Diastolic (mm Hg) 98 11/02/2017 [facility] Respitory Rate 15 01/21/2017 [facility] Systolic (mm Hg) 151 01/21/2017 [facility] Diastolic (mm Hg) 81 01/21/2017 [facility] Respitory Rate 20 01/21/2017 [facility] Systolic (mm Hg) 150 01/21/2017 [facility] Diastolic (mm Hg) 83 01/21/2017 [facility] Systolic (mm Hg) 144 01/21/2017 [facility] Diastolic (mm Hg) 62 01/21/2017 [facility] Respitory Rate 14 01/21/2017 [facility] Heart Rate 61 01/21/2017 [facility] Weight 84.091 01/14/2017 [facility] BMI Calculated 31.82 01/14/2017 [facility] Height 162.56 cm 01/14/2017 [facility] Systolic (mm Hg) 137 10/15/2011 [facility] Diastolic (mm Hg) 72 10/15/2011 [facility] Heart Rate 71 10/15/2011 [facility] Respitory Rate 20 10/15/2011 [facility] Weight 80.455 10/15/2011 [facility] Height 162.56 cm 10/15/2011 [facility] Systolic (mm Hg) 95.0 04/30/2011 [facility] Diastolic (mm Hg) 48.0 04/30/2011 [facility] Respitory Rate 13.0 04/30/2011 [facility] Diastolic (mm Hg) 51.0 04/30/2011 [facility] Systolic (mm Hg) 105.0 04/30/2011 [facility] Respitory Rate 18.0 04/30/2011 [facility] Temperature Oral (F) 99.0 F 04/30/2011 [facility] Respitory Rate 12.0 04/30/2011 [facility] Systolic (mm Hg) 104.0 04/30/2011 [facility] Diastolic (mm Hg) 56.0 04/30/2011 [facility] Temperature Oral (F) 97.5 F 04/30/2011 [facility] Temperature Oral (F) 97.4 F 04/30/2011 [facility] Height 160.02 cm 04/29/2011 [facility] Weight 79.545 04/29/2011 [facility] Heart Rate 94.0 04/29/2011 [facility] Height 162.56 cm 04/27/2011 [facility] Weight 79.545 04/27/2011 [facility] Encounters Location Location Encounter Encounter Reason Attending ADM DC Status Source Details Type Number For Provider Date Date Visit [facility] Inpatient [id number] TATA LOMBARDI 04/29 04/30 Discharg [facility] ed Medical [facility] [id number] TATA LOMBARDI 10/14 10/14 Discharg [facility] ed Medical [facility] Bedded [id number] Magy 01/21 01/21 [facility] MNA Phone [id number] 10/25 10/27 [facility] Message Neuro y [place] [facility] [id number] TAYLOR 11/02 [facility] 0 [place] Outpatient [id number] [place] 11/02 11/03 [facility] 0 Neuro [facility] [place] [facility] Outpt Diag [id number] Taylor 11/11 11/12 OP Outpatient Services 1 Imaging Imaging - - [facility] MNA Phone [id number] 11/18 11/20 [facility] Message Neuro e [facility] Inpatient [id number] Jw 07/04 07/04 [place] 6 [facility] Procedures Procedure Code Date Perfomer Comments Source Brain [id number] 10/21/2010 ANURYSM [facility]sup>1[facility]sup [facility] > Brain [id number] 10/21/2010 ANURYSM [facility] Neuro operations<sup>1</sup > Brain [id number] 10/21/2010 ANURYSM OP Imaging operations<sup>1</sup - [place] > Cataract surgery [id number] [facility] Knee arthroplasty [id number] [facility] Cataract surgery [id number] [facility] Knee arthroplasty [id number] [facility] Cataract surgery [id number] [facility] [place] Knee arthroplasty [id number] [facility] [place] Carpal tunnel release [id number] [facility] Cholecystectomy [id number] [facility] Assessment and Plan No Data Provided for This Section Plan of Care No Data Provided for This Section Social History Social History Date Source Social History TypeResponse 06/20/2018 [facility] Substance Abuse Use: None. Alcohol Current, Type Wine. Frequency: Daily. Smoking Status Former smoker; Type: Cigarettes; Exposure to Tobacco Smoke None; Cigarette Smoking Last 365 Days No; Reg Smoking Cessation Counseling No; Started at age: 18.0; Stopped at age: 38; entered on: 07/04/18 Social History TypeResponse 01/21/2017 [facility] Alcohol Past Smoking Status Former smoker; Exposure to Tobacco Smoke None; Cigarette Smoking Last 365 Days No; Reg Smoking Cessation Counseling No entered on: 11/02/17 Social History TypeResponse 01/21/2017 [facility] [place] Alcohol Past Smoking Status Former smoker; Exposure to Tobacco Smoke None; Cigarette Smoking Last 365 Days No; Reg Smoking Cessation Counseling No entered on: 11/02/17 Family History No Data Provided for This Section Advance Directives No Data Provided for This Section Functional Status No Data Provided for This Section
--- OUTSIDE RECORDS SUMMARY | 2019-01-14 23:09 | XMS REPORT | Summary of Care ---
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 Allergies, Adverse Reactions, Alerts Substance Reaction Severity Status NKDA Active Medications No data available for this section Results No data available for this section Immunizations No data available for this section Procedures Procedure Date Related Diagnosis Body Site Status Brain operations1 10/21/10 Completed Cataract surgery Completed Knee arthroplasty Completed 1ANURYSM Social History Social History Type Response Alcohol Past Smoking Status Former smoker; Exposure to Tobacco Smoke None; Cigarette Smoking Last 365 Days No; Reg Smoking Cessation Counseling No entered on: 01/21/17 Assessment and Plan No data available for this section
--- OUTSIDE RECORDS SUMMARY | 2019-01-14 23:09 | XMS REPORT | Summary of Care ---
:1940 Author Organization [facility] Address [address] [place] [address]- Encounter [employer](FIN) [id number] Date(s): 07/04/18 - 07/04/18 [facility] [id number] [place] [address]- [place] [phone] Discharge Disposition: Home or Self Care Attending Physician: Jw Bruce MD Admitting Physician: Jw Bruce MD Referring Physician: Jw Bruce MD Vital Signs Most recent to oldest 1 2 3 [Reference Range]: Height 160.02 cm (06/20/18 9:15 AM) Temperature Oral [96.4-99.1 98 DegF DegF] (06/20/18 9:22 AM) Blood Pressure [90-140/60-90 131/79 mmHg 136/78 mmHg 127/68 mmHg mmHg] (07/04/18 11:00 AM) (07/04/18 10:45 AM) (07/04/18 10:30 AM) Respiratory Rate [14-20 14 BRMIN 17 BRMIN 14 BRMIN BRMIN] (07/04/18 11:00 AM) (07/04/18 10:45 AM) (07/04/18 10:30 AM) Peripheral Pulse Rate 69 bpm 72 bpm [60-100 bpm] (07/04/18 5:51 AM) (06/20/18 9:22 AM) Weight 87.6 kg (06/20/18 9:15 AM) Body Mass Index 34.21 m2 (06/20/18 9:15 AM) Problem List Condition Effective Dates Status Health Status Informant Knee joint pain(Confirmed) < 07/24/04 Resolved Benign essential hypertension1 07/10/08 Active Cerebral angiogram(Confirmed) Active 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/22/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 multiple joints2 Dermatitis3 04/23/08 Active Dyslipidemia4 Active Hypercholesterolemia(Confirmed) Active Hypertension(Confirmed) Active Brain aneurysm(Confirmed) < 05/03/11 Resolved Neck pain(Confirmed) Active Nonruptured cerebral aneurysm5 Active Operative procedure on cerebral 04/29/11 Active aneurysm(Confirmed) Osteoarthritis(Confirmed) Active Overweight6 04/23/08 Active Simple obesity(Confirmed) Active 1Data migrated from [employer] on 11/10/14.2Data migrated from [employer] on 11/10/14.3Data migrated from [employer] on 11/10/14.4Data migrated from [employer] on 11/10/14.5Data migrated from [employer] on 02/05/15.6Data migrated from [employer] on 11/10/14. Allergies, Adverse Reactions, Alerts Substance Reaction Severity Status NKDA Active Medications 1/2 NS 1,000 mL 1,000 mL, Rate: 75 ml/hr, Infuse over: 13.3 hr, Route: IV, Dosing Weight 87.6 kg , Total Volume: 1,000, Start date: 07/04/18 10:13:00 NUCLEAR TEST TECHNICIAN, Duration: 30 day, Stop date: 08/03/18 10:12:00 NUCLEAR TEST TECHNICIAN, 2, m2 Start Date: 07/04/18 Stop Date: 07/04/18 Status: Discontinuedacetaminophen 1,000 mg, PO, TID, 0 Refill(s) Start Date: 07/04/18 Status: Orderedacetaminophen 1,000 mg, 2 tab, Route: PO, Drug form: TAB, TID, Dosing Weight 87.6, kg, Start date: 07/04/18 13:00:00 NUCLEAR TEST TECHNICIAN, Duration: 30 day, Stop date: 08/03/18 9:00:00 NUCLEAR TEST TECHNICIAN Notes: Max acetaminophen 4000 mg/day (4 gm/day). (Same as: Tylenol Extra Strength) Start Date: 07/04/18 Stop Date: 07/04/18 Status: Discontinuedacetaminophen 1,000 mg, 2 tab, Route: PO, Drug form: TAB, PRE OP, Start date: 07/04/18 6:00: 00 NUCLEAR TEST TECHNICIAN, Duration: 1 doses or times Notes: Max acetaminophen 4000 mg/day (4 gm/day). (Same as: Tylenol Extra Strength) Start Date: 07/04/18 Stop Date: 07/04/18 Status: CompletedAl hydroxide/Mg hydroxide/simethicone 200 mg-200 mg-20 mg/5 mL oral suspension 30 mL, Route: PO, Drug Form: SUSP, Dosing Weight 87.6, kg, Q4H, PRN Indigestion , Start date: 07/04/18 10:15:00 NUCLEAR TEST TECHNICIAN, Duration: 30 day, Stop date: 08/03/18 10:14 :00 NUCLEAR TEST TECHNICIAN Notes: (aluminum hydroxide-magnesium hyd-simethicone [phone]/5ml 30 ml ud WILLIAM) Start Date: 07/04/18 Stop Date: 07/04/18 Status: DiscontinuedAncef 2 gm, 20 mL, Route: IVPB, Drug form: INJ, ONCE, Dosing Weight 87.6, kg, Start date: 07/04/18 10:13:00 NUCLEAR TEST TECHNICIAN, Stop date: 07/04/18 10:13:00 NUCLEAR TEST TECHNICIAN, ABX Indication: Surgical Prophylaxis Notes: (Same As: Ancef)Inject direct IV slowly over 5 minutes.Cefazolin 1gm in sterile water 10mL Start Date: 07/04/18 Stop Date: 07/04/18 Status: CompletedANES acetaminophen 1,000 mg, 2 tab, Route: PO, Drug form: TAB, ONCE, Dosing Weight 87.6, kg, PRN Pain Score 1-3, Start date: 07/04/18 9:51:00 NUCLEAR TEST TECHNICIAN Notes: Max acetaminophen 4000 mg/day (4 gm/day). (Same as: Tylenol Extra Strength) Start Date: 07/04/18 Stop Date: 07/04/18 Status: DiscontinuedANES albuterol 0.083% inhalation solution 2.49 mg, 3 mL, Route: NEB, Drug form: SOLN, Q20Min, Dosing Weight 87.6, kg, PRN Wheezing, Priority: STAT, Start date: 07/04/18 9:51:00 NUCLEAR TEST TECHNICIAN, Duration: 30 day, Stop date: 08/03/18 9:50:00 NUCLEAR TEST TECHNICIAN Notes: SEE RT DOCUMENTATION (Same as: Riley) Start Date: 07/04/18 Stop Date: 07/04/18 Status: DiscontinuedANES diphenhydrAMINE 12.5 mg, 0.25 mL, Route: IVP, Drug form: INJ, Q6H, Dosing Weight 87.6, kg, PRN Itching, Start date: 07/04/18 9:51:00 NUCLEAR TEST TECHNICIAN, Duration: 30 day, Stop date: 9:50:00 NUCLEAR TEST TECHNICIAN Notes: (Same as: Benadryl) Start Date: 07/04/18 Stop Date: 07/04/18 Status: DiscontinuedANES flumazenil 0.2 mg, 2 mL, Route: IVP, Drug form: INJ, PRN, Dosing Weight 87.6, kg, PRN Benzodiazepine Reversal, Initial dose, Start date: 07/04/18 9:51:00 NUCLEAR TEST TECHNICIAN, Duration: 30 day, Stop date: 08/03/18 9:50:00 NUCLEAR TEST TECHNICIAN Notes: (Same as: Romazicon) Start Date: 07/04/18 Stop Date: 07/04/18 Status: DiscontinuedANES hydrALAZINE 10 mg, 0.5 mL, Route: IVP, Drug form: INJ, Q20Min, Dosing Weight 87.6, kg, PRN Elevated BP, Start date: 07/04/18 9:51:00 NUCLEAR TEST TECHNICIAN, Duration: 2 doses or times, Stop date: Limited # of times Notes: (Same as: Apresoline)Push over 5 minutes Start Date: 07/04/18 Stop Date: 07/04/18 Status: DiscontinuedANES ketOROLAC 15 mg, 0.5 mL, Route: IVP, Drug form: INJ, ONCE, Dosing Weight 87.6, kg, Start date: 07/04/18 9:51:00 NUCLEAR TEST TECHNICIAN, Stop date: 07/04/18 9:51:00 NUCLEAR TEST TECHNICIAN Notes: (Same as:Toradol) IV bolus must be given >15 seconds. Give IM administration slowly and deeply into the muscle.Not for use > 4 days MEDICATION WASTE Product Size: 30 mgProduct Wasted: _15__ mg Start Date: 07/04/18 Stop Date: 07/04/18 Status: CompletedANES meperidine 12.5 mg, 0.5 mL, Route: IVP, Drug form: INJ, Q30Min, Dosing Weight 87.6, kg, PRN Other -See Comment,For shivering, Start date: 07/04/18 9:51:00 NUCLEAR TEST TECHNICIAN, Duration : 2 doses or times, Stop date: Limited # oftimes Notes: (Same as: Demerol) "Use Precaution in Elderly, Seizure disorders, and Renal impairment" Start Date: 07/04/18 Stop Date: 07/04/18 Status: DiscontinuedANES metoprolol 1 mg, 1 mL, Route: IVP, Drug form: INJ, Q5Min, Dosing Weight 87.6, kg, PRN Other -See Comment, Startdate: 07/04/18 9:51:00 NUCLEAR TEST TECHNICIAN, Duration: 5 doses or times , Stop date: Limited # of times Notes: (Same as: Lopressor)Push over 2 minutes Start Date: 07/04/18 Stop Date: 07/04/18 Status: DiscontinuedANES morphine Sulfate 4 mg, 1 mL, Route: IVP, Drug form: SOLN, Q5Min, Dosing Weight 87.6, kg, PRN Pain Score 7-10, Start date: 07/04/18 9:51:00 NUCLEAR TEST TECHNICIAN, Duration: 3 doses or times, Stop date: 07/04/18 22:00:00 NUCLEAR TEST TECHNICIAN Notes: (Same as:MORPhine Sulfate) Start Date: 07/04/18 Stop Date: 07/04/18 Status: DiscontinuedANES morphine Sulfate 2 mg, 1 mL, Route: IVP, Drug form: SOLN, Q5Min, Dosing Weight 87.6, kg, PRN Pain Score 4-6, Start date: 07/04/18 9:51:00 NUCLEAR TEST TECHNICIAN, Duration: 5 doses or times, Stop date: Limited # of times Start Date: 07/04/18 Stop Date: 07/04/18 Status: DiscontinuedANES naloxone 0.4 mg, 1 mL, Route: IVP, Drug form: INJ, Q2MIN, Dosing Weight 87.6, kg, PRN Narcotic Reversal, Start date: 07/04/18 9:51:00 NUCLEAR TEST TECHNICIAN, Duration: 8 doses or times , Stop date: Limited # of times Notes: Same as Narcan Start Date: 07/04/18 Stop Date: 07/04/18 Status: DiscontinuedANES ondansetron 4 mg, 2 mL, Route: IVP, Drug form: INJ, ONCE, Dosing Weight 87.6, kg, PRN Nausea & Vomiting, Start date: 07/04/18 9:51:00 NUCLEAR TEST TECHNICIAN Notes: (Same as: Zofran) MEDICATION WASTE Product Size: 4 mgProduct Wasted: ___ mg Start Date: 07/04/18 Stop Date: 07/04/18 Status: DiscontinuedANES promethazine 12.5 mg, 0.5 mL, Route: IM, Drug form: INJ, ONCE, Dosing Weight 87.6, kg, PRN Nausea & Vomiting,Start date: 07/04/18 9:51:00 NUCLEAR TEST TECHNICIAN Notes: Do not give IV push. (Same as: Phenergan) Start Date: 07/04/18 Stop Date: 07/04/18 Status: Discontinuedaspirin 325 mg tablet, enteric coated 325 mg, 1 tab, Route: PO, Drug form: ECTAB, Daily, Dosing Weight 87.6, kg, Start date: 07/05/18 9:00:00 NUCLEAR TEST TECHNICIAN, Duration: 30 day, Stop date: 08/03/18 9:00:00 NUCLEAR TEST TECHNICIAN Notes: (Do Not Crush) Do not crush or chew. Start Date: 07/05/18 Stop Date: 07/04/18 Status: Canceledaspirin 325 mg tablet, enteric coated 325 mg, PO, Daily, 0 Refill(s) Start Date: 07/04/18 Status: Orderedbupivacaine (ANES) Route: INTRATHECAL, Drug Form: INJ, ONCE, Stop date: 07/04/18 7:54:00 NUCLEAR TEST TECHNICIAN Start Date: 07/04/18 Stop Date: 07/04/18 Status: CompletedBystolic 20 mg oral tablet 20 mg=1 tab, PO, Daily, 0 Refill(s) Start Date: 06/20/18 Status: OrderedceFAZolin 2 gm, 20 mL, Route: IV, Drug form: INJ, PRE OP, Start date: 07/04/18 6:00:00 NUCLEAR TEST TECHNICIAN , Duration: 1 doses or times, ABX Indication: Surgical Prophylaxis Notes: (Same As: Ancef)Inject direct IV slowly over 5 minutes.Cefazolin 1gm in sterile water 10mL Start Date: 07/04/18 Stop Date: 07/04/18 Status: DiscontinuedceFAZolin (ANES) Route: IV, Drug form: INJ, ONCE, Stop date: 07/04/18 7:59:00 NUCLEAR TEST TECHNICIAN Start Date: 07/04/18 Stop Date: 07/04/18 Status: CompletedCeleBREX 400 mg, 4 cap, Route: PO, Drug form: CAP, PRE OP, Start date: 07/04/18 6:00:00 NUCLEAR TEST TECHNICIAN, Duration: 1 doses or times Notes: NSAID. Please check indication. Not for seizure. (Same As: CeleBREX) Start Date: 07/04/18 Stop Date: 07/04/18 Status: Completedcelecoxib 200 mg, 2 cap, Route: PO, Drug form: CAP, BID, Dosing Weight 87.6, kg, Start date: 07/04/18 17:00:00CST, Duration: 30 day, Stop date: 08/03/18 9:00:00 NUCLEAR TEST TECHNICIAN Notes: NSAID. Please check indication. Not for seizure. (Same As: CeleBREX) Start Date: 07/04/18 Stop Date: 07/04/18 Status: Canceledcelecoxib 200 mg oral capsule 200 mg, PO, BID, # 60 caplet, 1 Refill(s), Pharmacy: [facility] [id number] Start Date: 07/04/18 Status: Ordereddexamethasone (ANES) Route: IV, Drug form: INJ, ONCE, Stop date: 07/04/18 8:54:00 NUCLEAR TEST TECHNICIAN Start Date: 07/04/18 Stop Date: 07/04/18 Status: CompletedePHEDrine (ANES) Route: IV, Drug form: INJ, ONCE, Stop date: 07/04/18 8:24:00 NUCLEAR TEST TECHNICIAN Start Date: 07/04/18 Stop Date: 07/04/18 Status: Completedfamotidine (ANES) Route: IV, Drug form: INJ, ONCE, Stop date: 07/04/18 8:54:00 NUCLEAR TEST TECHNICIAN Start Date: 07/04/18 Stop Date: 07/04/18 Status: Completedglycopyrrolate (ANES) Route: IV, Drug form: INJ, ONCE, Stop date: 07/04/18 8:54:00 NUCLEAR TEST TECHNICIAN Start Date: 07/04/18 Stop Date: 07/04/18 Status: Completedhydrochlorothiazide-losartan 25 mg-100 mg oral tablet 1 tab, PO, Daily, 0 Refill(s) Start Date: 06/20/18 Status: OrderedketOROLAC 30 mg/mL injectable solution 15 mg, 0.5 mL, Route: IVP, Drug form: INJ, Q6H, Dosing Weight 87.6, kg, PRN Pain Score 7-10, Start date: 07/04/18 10:15:00 NUCLEAR TEST TECHNICIAN, Duration: 1 doses or times, Stop date: Limited # of times Notes: (Same as:Toradol) IV bolus must be given >15 seconds. Give IM administration slowly and deeply into the muscle.Not for use > 4 days MEDICATION WASTE Product Size: 30 mgProduct Wasted: ___ mg Start Date: 07/04/18 Stop Date: 07/04/18 Status: DiscontinuedLactated Ringers Injection IV (ANES) 1000 mL Route: IV, Total Volume: 1,000, Start date: 07/04/18 7:12:00 NUCLEAR TEST TECHNICIAN, Stop date: 8:12:00 NUCLEAR TEST TECHNICIAN Start Date: 07/04/18 Stop Date: 07/04/18 Status: CompletedLactated Ringers Injection IV 1,000 mL 1,000 mL, Rate: 25 ml/hr, Infuse over: 40 hr, Route: IV, Dosing Weight 87.6 kg, Total Volume: 1,000,Start date: 07/04/18 5:45:00 NUCLEAR TEST TECHNICIAN, Duration: 30 day, Stop date: 08/03/18 5:44:00 NUCLEAR TEST TECHNICIAN, 2, m2 Start Date: 07/04/18 Stop Date: 07/04/18 Status: DiscontinuedLyrica 75 mg, 1 cap, Route: PO, Drug form: CAP, PRE OP, Start date: 07/04/18 6:00:00 NUCLEAR TEST TECHNICIAN, Duration: 1 dosesor times Notes: (Same as: Lyrica) Start Date: 07/04/18 Stop Date: 07/04/18 Status: Completedmethylergonovine (ANES) Route: IM, Drug form: INJ, ONCE, Stop date: 07/04/18 8:29:00 NUCLEAR TEST TECHNICIAN Start Date: 07/04/18 Stop Date: 07/04/18 Status: Completedmidazolam (ANES) Route: IV, Drug form: SOLN, ONCE, Stop date: 07/04/18 7:59:00 NUCLEAR TEST TECHNICIAN Start Date: 07/04/18 Stop Date: 07/04/18 Status: Completedmorphine Sulfate 2 mg, 1 mL, Route: IVP, Drug form: SOLN, Q4H, Dosing Weight 87.6, kg, PRN Pain Score 7-10, Start date: 07/04/18 10:15:00 NUCLEAR TEST TECHNICIAN, Stop date: 07/04/18 22:00:00 NUCLEAR TEST TECHNICIAN Start Date: 07/04/18 Stop Date: 07/04/18 Status: Discontinuedondansetron 4 mg, Route: PO, Q8H, Dosing Weight 87.6, kg, Start date: 07/04/18 16:00:00 NUCLEAR TEST TECHNICIAN , Duration: 30 day, Stop date: 08/03/18 8:00:00 NUCLEAR TEST TECHNICIAN Start Date: 07/04/18 Stop Date: 07/04/18 Status: Deletedondansetron (ANES) Route: IV, Drug form: INJ, ONCE, Stop date: 07/04/18 8:54:00 NUCLEAR TEST TECHNICIAN Start Date: 07/04/18 Stop Date: 07/04/18 Status: CompletedoxyCODONE 5 mg immediate release 5 mg, 1 tab, Route: PO, Drug form: TAB, Q4H, Dosing Weight 87.6, kg, PRN Pain Score 4-6, Start date:07/04/18 10:15:00 NUCLEAR TEST TECHNICIAN, Duration: 30 day, Stop date: 10:14:00 NUCLEAR TEST TECHNICIAN Notes: (Same as: Roxicodone) Start Date: 07/04/18 Stop Date: 07/04/18 Status: Discontinuedphenylephrine (ANES) Route: IV, Drug form: INJ, ONCE, Stop date: 07/04/18 8:49:00 NUCLEAR TEST TECHNICIAN Start Date: 07/04/18 Stop Date: 07/04/18 Status: Completedpropofol (ANES) 10 mg Route: IV, Drug form: INJ, Start date: 07/04/18 7:30:00 NUCLEAR TEST TECHNICIAN, Stop date: 8:30:00 NUCLEAR TEST TECHNICIAN Start Date: 07/04/18 Stop Date: 07/04/18 Status: CompletedSodium Chloride 0.9% IV (ANES) 1000 mL Route: IV, Total Volume: 1,000, Start date: 07/04/18 9:04:00 NUCLEAR TEST TECHNICIAN, Stop date: 10:04:00 NUCLEAR TEST TECHNICIAN Start Date: 07/04/18 Stop Date: 07/04/18 Status: CompletedSodium Chloride 0.9% IV (ANES) 50 mL Route: IV, Total Volume: 50, Start date: 07/04/18 9:27:00 NUCLEAR TEST TECHNICIAN, Stop date: 10:27:00 NUCLEAR TEST TECHNICIAN Start Date: 07/04/18 Stop Date: 07/04/18 Status: Completedtramadol 50 mg oral tablet 100 mg=2 tab, PO, Q6H, # 100 tab, 0 Refill(s) Start Date: 07/04/18 Stop Date: 08/06/18 Status: Orderedtramadol 50 mg oral tablet 100 mg, 2 tab, Route: PO, Drug form: TAB, Q6H, Dosing Weight 87.6, kg, Start date: 07/04/18 12:00:00CST, Duration: 30 day, Stop date: 08/03/18 6:00:00 NUCLEAR TEST TECHNICIAN Notes: Not to exceed 400mg/day. (Same As: Ultram) Start Date: 07/04/18 Stop Date: 07/04/18 Status: Discontinuedtranexamic acid (ANES) Route: IV, Drug form: INJ, ONCE, Stop date: 07/04/18 8:24:00 NUCLEAR TEST TECHNICIAN Start Date: 07/04/18 Stop Date: 07/04/18 Status: CompletedVitamin D2 PO, 0 Refill(s) Start Date: 06/20/18 Stop Date: 06/20/18 Status: CompletedVitamin D2 50,000 intl units oral capsule 50,000 IntlUnit=1 cap, PO, Daily, 0 Refill(s) Start Date: 06/20/18 Status: OrderedZofran 4 mg, 1 tab, Route: PO, Drug form: TAB, Q8H, Dosing Weight 87.6, kg, Start date : 07/04/18 16:00:00 NUCLEAR TEST TECHNICIAN, Duration: 30 day, Stop date: 08/03/18 8:00:00 NUCLEAR TEST TECHNICIAN Notes: (Same as: Zofran) Start Date: 07/04/18 Stop Date: 07/04/18 Status: Canceled Results ELECTROLYTES Most recent to oldest [Reference Range]: 1 Sodium Lvl [135-145 mEq/L] 137 mEq/L (06/20/18 10:03 AM) Potassium Lvl [3.5-5.1 mEq/L] 3.5 mEq/L (06/20/18 10:03 AM) Chloride Lvl [95-109 mEq/L] 102 mEq/L (06/20/18 10:03 AM) CO2 [24-32 mEq/L] 28 mEq/L (06/20/18 10:03 AM) AGAP [10.0-20.0 mEq/L] 10.5 mEq/L (06/20/18 10:03 AM) CHEM PANEL Most recent to oldest [Reference Range]: 1 Creatinine Lvl [0.50-1.40 mg/dL] 1.00 mg/dL (06/20/18 10:03 AM) eGFR 54 mL/min/1.73m2 1 *NA* (06/20/18 10:03 AM) BUN [7-22 mg/dL] 22 mg/dL (06/20/18 10:03 AM) Glucose Lvl [70-99 mg/dL] 104 mg/dL *HI* (06/20/18 10:03 AM) Albumin Lvl [3.5-5.0 g/dL] 4.0 g/dL (06/20/18 10:03 AM) Calcium Lvl [8.5-10.5 mg/dL] 9.5 mg/dL (06/20/18 10:03 AM) 1Result Comment: The eGFR is calculated using the CKD-EPI formula. In most young , healthy individualsthe eGFR will be >90 mL/min/1.73m2. The eGFR declines with age. An eGFR of 60-89 may be normal insome populations, particularly the elderly, for whom the CKD-EPI formula has not been extensively validated. Use of the eGFR is not recommended in the following populations: Individuals with unstable creatinine concentrations, including patients and those with serious co-morbid conditions. Patients with extremes in muscle mass or diet. The data above are obtained from the National Kidney Disease Education Program ( NKDEP) which additionally recommends that when the eGFR is used in patients with extremes of body mass index for purposesof drug dosing, the eGFR should be multiplied by the estimated BMI.URINE CHEM Most recent to oldest [Reference Range]: 1 U Cotinine Lvl [Negative] Negative (06/20/18 10:03 AM) HEMATOLOGY Most recent to oldest [Reference Range]: 1 WBC [3.7-10.4 K/CMM] 6.9 K/CMM (1/7/19 10:03 AM) RBC [4.20-5.40 M/CMM] 4.28 M/CMM (06/20/18 10:03 AM) Hgb [12.0-16.0 g/dL] 13.0 g/dL (06/20/18 10:03 AM) Hct [36.0-48.0 %] 39.8 % (06/20/18 10:03 AM) MCV [80.0-98.0 fL] 93.0 fL (06/20/18 10:03 AM) MCH [27.0-31.0 pg] 30.4 pg (06/20/18 10:03 AM) MCHC [32.0-36.0 g/dL] 32.7 g/dL (06/20/18 10:03 AM) RDW [11.5-14.5 %] 13.3 % (06/20/18 10:03 AM) MPV [7.4-10.4 fL] 9.7 fL (06/20/18 10:03 AM) Platelet [133-450 K/CMM] 254 K/CMM (06/20/18 10:03 AM) Segs [45.0-75.0 %] 65.6 % (06/20/18 10:03 AM) Lymphocytes [20.0-40.0 %] 22.4 % (06/20/18 10:03 AM) Monocytes [2.0-12.0 %] 9.0 % (06/20/18 10:03 AM) Eosinophils [0.0-4.0 %] 2.4 % (06/20/18 10:03 AM) Basophils [0.0-1.0 %] 0.6 % (06/20/18 10:03 AM) Neutrophils # [1.5-8.1 K/CMM] 4.6 K/CMM (06/20/18 10:03 AM) Lymphocytes # [1.0-5.5 K/CMM] 1.6 K/CMM (06/20/18 10:03 AM) Monocytes # [0.0-0.8 K/CMM] 0.6 K/CMM (06/20/18 10:03 AM) Eosinophils # [0.0-0.5 K/CMM] 0.2 K/CMM (06/20/18 10:03 AM) Immunizations No data available for this section Procedures Procedure Date Related Diagnosis Body Site Status Brain operations1 10/21/10 Completed Carpal tunnel release Completed Cataract surgery Completed Cholecystectomy Completed Knee arthroplasty Completed 1ANURYSM Social History Social History Type Response Substance Abuse Use: None. Alcohol Current, Type Wine. Frequency: Daily. Smoking Status Former smoker; Type: Cigarettes; Exposure to Tobacco Smoke None ; Cigarette Smoking Last 365 Days No; Reg Smoking Cessation Counseling No; Started at age: 18.0; Stopped at age: 38; entered on: 07/04/18 Assessment and Plan No data available for this section
--- OUTSIDE RECORDS SUMMARY | 2019-01-14 23:09 | XMS REPORT | Summary of Care ---
:1940 Author Organization [facility] [place] Address [address], [address] [place] [address]- Encounter HQ Boni_doris(FIN) [phone] Date(s): 11/02/17 - 11/02/17 [facility] [place] [address], [address] [place] [address]- [place] [phone] Discharge Disposition: Home or Self Care Attending Physician: Galdino Bowles MD Referring Physician: Galdino Bowles MD Vital Signs Most recent to oldest [Reference Range]: 1 Height 162.56 cm (11/02/17 1:11 PM) Blood Pressure [90-140/60-90 mmHg] 163/98 mmHg *HI* (11/02/17 1:11 PM) Peripheral Pulse Rate [60-100 bpm] 67 bpm (11/02/17 1:11 PM) Weight 86.591 kg (11/02/17 1:11 PM) Body Mass Index 32.77 m2 (11/02/17 1:11 PM) Problem List Condition Effective Dates Status Health Status Informant Knee joint pain(Confirmed) < 07/24/04 Resolved Benign essential hypertension1 07/10/08 Active Cerebral angiogram(Confirmed) Active 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 Allergies, Adverse Reactions, Alerts Substance Reaction Severity Status NKDA Active Medications No Known Medications Results No data available for this section [...] Smoking Cessation Counseling No entered on: 11/02/17 Assessment and Plan No data available for this section
--- OUTSIDE RECORDS SUMMARY | 2019-01-14 23:09 | XMS REPORT | CCD ---
:1940 Author Organization [facility] Care Team Providers Name Role Phone JOSE Dejesus Consulting Provider Unavailable Tita Trujillo Consulting Provider Shelly Fisher Consulting Provider Unavailable Bart Reynoso Consulting Provider Unavailable Barrera Odonnell Consulting Provider Unavailable Audra Zurita Consulting Provider Everette Stratton Consulting Provider Unavailable Bushra Jackson Consulting Provider Unavailable Yoly Bone Consulting Provider Unavailable Jesenia Yeboah Consulting Provider Unavailable Kenisha Sanchez Consulting Provider Unavailable Araceli Atwood Consulting Provider Unavailable Sari Ash Consulting Provider Hue Echeverria Consulting Provider Willy Kwon Consulting Provider Unavailable Olimpia Medrano Consulting Provider [phone] Salvador Martin Consulting Provider Unavailable Samira Jaimes Consulting Provider Unavailable Martha Hutchinson Consulting Provider Unavailable Felix Harvey Consulting Provider Unavailable Trudi Curtis Consulting Provider Rosario Haywood Consulting Provider Unavailable Ho, Missy Phi My Consulting Provider Carrol Ortiz Consulting Provider Unavailable Alannah Perry Consulting Provider Unavailable Radha Ortiz Consulting Provider Deven Swift Consulting Provider Nasir Lawrence Consulting Provider Unavailable Pete Palomares Consulting Provider Unavailable Karl Hope Consulting Provider Unavailable Natty Goel Consulting Provider Unavailable SYSTEM, SYSTEM Consulting Provider Unavailable Concepcion Perry Consulting Provider [phone] Chris Larose Consulting Provider Unavailable Malorie Yates Consulting Provider Unavailable Nelida Kelly Consulting Provider Unavailable Deanne Collier Consulting Provider Unavailable Lula Hudson Consulting Provider Betito Johnson Jr Consulting Provider Unavailable Dena Arboleda Consulting Provider Unavailable Lorena Wiggins Consulting Provider Unavailable Fausto Greene Referring Provider Tez Andres ([facility]) Jackie Consulting Provider [phone] Anne Pitt Consulting Provider Unavailable Pepper Pacheco Consulting Provider Jeri Roman Consulting Provider Galdino Restrepo Consulting Provider Unavailable Allergies, Adverse Reactions, Alerts Substance Reaction Status NKDA ?? 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/29/2011 Active Medications Medication Instructions Start Date End Date Status Lactated Ringers IV 1,000 1,000 mL, Rate: 40 04/29/2011 04/29/2011 Discontinued mL ml/hr, Infuse over: 25 hr, Route: IV, Total Volume: 1,000, Start date: 04/29/11 8:13:00, Duration: 30 day, Stop date: 05/29/11 8:12:00 Exforge 10 mg-320 mg oral 1 tab, Route: PO, Daily, 04/30/2011 04/29/2011 Deleted tablet Start date: 04/30/11 9:00:00, Duration: 30 day, Stop date: 05/29/11 9:00:00 Diovan 320 mg, 2 tab, Route: 04/30/2011 04/30/2011 Discontinued PO, Drug form: TAB, Daily, Start date: 04/30/11 9:00:00, Duration: 30 day, Stop date: 05/29/11 9:00:00 labetalol 10 mg, 2 mL, Route: IVP, 04/29/2011 04/30/2011 Discontinued Drug form: INJ, Q15Min, PRN Hypertension, Start date: 04/29/11 16:03:00, Duration: 30 day, Stop date: 05/29/11 16:02:00 normal saline 0.9% IV 1,000 mL, Rate: 75 04/29/2011 04/30/2011 Discontinued 1,000 mL ml/hr, Infuse over: 13.3 hr, Route: IV, Total Volume: 1,000, Start date: 04/29/11 16:02:00, Duration: 30 day, Stop date: 05/29/11 16:01:00 Norvasc 10 mg, 1 tab, Route: PO, 04/30/2011 04/30/2011 Discontinued Drug form: TAB, Daily, Start date: 04/30/11 9:00:00, Duration: 30 day, Stop date: 05/29/11 9:00:00 Vytorin 04/02 1 tab, Route: PO, Daily, 04/30/2011 04/29/2011 Deleted Start date: 04/30/11 9:00:00, Duration: 30 day, Stop date: 05/29/11 9:00:00 omega-3 polyunsaturated 2, PO, BID, Substitution 04/27/2011 ?? Ordered fatty acids 1000 mg oral Allowed capsule zolpidem 5 mg oral tablet 1 tab, PO, PRN, Sleep, 04/27/2011 ?? Ordered Substitution Allowed MaxEPA 2 gm, 2 cap, Route: PO, 04/30/2011 04/30/2011 Discontinued Drug form: CAP, BID, Start date: 04/30/11 11:00:00, Duration: 30 day, Stop date: 05/30/11 9:00:00 labetalol 5 mg, 1 mL, Route: IVP, 04/29/2011 04/29/2011 Discontinued Drug form: INJ, Q5Min, PRN Elevated BP, Start date: 04/29/11 12:50:00, Duration: 5 doses or times, Stop date: 04/29/11 22:00:00 hydrALAZINE 5 mg, 0.25 mL, Route: 04/29/2011 04/29/2011 Discontinued IVP, Drug form: INJ, Q5Min, PRN Elevated BP, Start date: 04/29/11 12:50:00, Duration: 4 doses or times, Stop date: Limited # of times ondansetron 4 mg, 2 mL, Route: IVP, 04/29/2011 04/29/2011 Discontinued Drug form: INJ, ONCE, Start date: 04/29/11 12:50:00, Stop date: 04/29/11 12:50:00 promethazine 6.25 mg, 0.25 mL, Route: 04/29/2011 04/29/2011 Discontinued IVPB, Drug form: INJ, ONCE, Start date: 04/29/11 12:50:00, Stop date: 04/29/11 12:50:00 acetaminophen-hydrocodone 2 tab, Route: PO, Drug 04/29/2011 04/29/2011 Discontinued 325 mg-5 mg oral tablet Form: TAB, Q4H, PRN Pain Score 4-6, Start date: 04/29/11 12:50:00, Duration: 30 day, Stop date: 05/29/11 12:49:00 meperidine 12.5 mg, 0.5 mL, Route: 04/29/2011 04/29/2011 Discontinued IVP, Drug form: INJ, Q30Min, PRN Other -See Comment, For shivering, Start date: 04/29/11 12:50:00, Duration: 2 doses or times, Stop date: 04/30/11 0:00:00 hydromorphone 0.5 mg, 0.25 mL, Route: 04/29/2011 04/29/2011 Discontinued IVP, Drug form: INJ, Q5Min, PRN Pain Score 4-6, Start date: 04/29/11 12:50:00, Duration: 5 doses or times, Stop date: 04/29/11 21:00:00 morphine Sulfate 2 mg, 1 mL, Route: IVP, 04/29/2011 04/29/2011 Discontinued Drug form: INJ, Q5Min, PRN Pain Score 4-6, Start date: 04/29/11 12:50:00, Duration: 8 doses or times, Stop date: 04/30/11 0:00:00 Zocor 20 mg, 1 tab, Route: PO, 04/30/2011 04/30/2011 Canceled Drug form: TAB, Bedtime, Start date: 04/30/11 21:00:00, Duration: 30 day, Stop date: 05/29/11 21:00:00 omega-3 polyunsaturated Route: PO, Drug Form: 04/30/2011 04/30/2011 Discontinued fatty acids with Vitamin B CAP, BID, Start date: Complex oral capsule 04/30/11 9:00:00, Duration: 30 day, Stop date: 05/29/11 17:00:00 Zetia 10 mg, 1 tab, Route: PO, 04/30/2011 04/30/2011 Canceled Drug form: TAB, Bedtime, Start date: 04/30/11 21:00:00, Duration: 30 day, Stop date: 05/29/11 21:00:00 midazolam 1 mg, Route: IV, ONCE, 04/29/2011 04/29/2011 Completed Start date: 04/29/11 13:40:00, Stop date: 04/29/11 13:40:00 Zofran 4 mg, 2 mL, Route: IVP, 04/29/2011 04/30/2011 Discontinued Drug form: INJ, Q8H, PRN Nausea, Start date: 04/29/11 17:16:00, Duration: 30 day, Stop date: 05/29/11 17:15:00 Exforge HCT 10 mg-320 1 tab, PO, Daily, 30 04/27/2011 ?? Ordered mg-25 mg oral tablet tab, Substitution Allowed, Maintenance, TAB Vytorin 10 mg-20 mg oral 1 tab, PO, Daily, 30 04/27/2011 ?? Ordered tablet tab, Substitution Allowed, Maintenance, TAB docusate sodium 100 mg 100 mg, 1 cap, PO, Q12H, 04/30/2011 ?? Ordered oral capsule 40 cap, Substitution Allowed, CAP acetaminophen-hydrocodone 2 tab, PO, Q4H, PRN, 30 tab, Pain Score 1-3, Substitution Allowed, Maintenance, (not to exceed 4000 mg acetaminophen per day) , TAB 04/30/2011 ?? Ordered 325 mg-5 mg oral tablet (not to exceed 4000 mg acetaminophen per day) docusate 100 mg, 1 cap, Route: 04/29/2011 04/30/2011 Discontinued PO, Drug form: CAP, Q12H, Start date: 04/29/11 21:00:00, Duration: 30 day, Stop date: 05/29/11 9:00:00 acetaminophen-hydrocodone 1 tab, Route: PO, Drug 04/29/2011 04/30/2011 Discontinued 325 mg-5 mg oral tablet Form: TAB, Q4H, PRN Pain Score 1-3, Start date: 04/29/11 13:53:00, Duration: 30 day, Stop date: 05/29/11 13:52:00 Dilaudid 0.5 mg, Route: IV, ONCE, 04/29/2011 04/29/2011 Completed PRN Pain, Start date: 04/29/11 12:39:00 famotidine 20 mg oral 20 mg, 1 tab, Route: PO, 04/29/2011 04/30/2011 Discontinued tablet Drug form: TAB, BID, Start date: 04/29/11 17:00:00, Duration: 30 day, Stop date: 05/29/11 9:00:00 Vital Signs Most recent to oldest 1 2 3 [Reference Range]: Height 160.02 cm 162.56 cm ?? (04/29/2011 08:06:00) ?? (04/27/2011 14:11:00) ?? Temperature Oral 99.0 DegF 97.5 DegF 97.4 DegF [96.4-99.1 DegF] (04/30/2011 07:00:00) ?? (04/30/2011 03:00:00) ?? (2010 23:00:00) ?? Systolic Blood Pressure 95 mmHg 105 mmHg 104 mmHg [90-140 mmHg] (04/30/2011 09:00:00) ?? (04/30/2011 08:00:00) ?? (04/30/2011 07:00:00) ?? Diastolic Blood Pressure 48 mmHg 51 mmHg 56 mmHg [60-90 mmHg] *LOW* *LOW* *LOW* (04/30/2011 09:00:00) ?? (04/30/2011 08:00:00) ?? (04/30/2011 07:00:00) ?? Respiratory Rate [14-20 13 BRMIN 18 BRMIN 12 BRMIN BRMIN] *LOW* (04/30/2011 08:00:00) ?? *LOW* (04/30/2011 09:00:00) ?? (04/30/2011 07:00:00) ?? Peripheral Pulse Rate 94 bpm ? [60-100 bpm] (04/29/2011 08:05:00) ?? Weight 79.545 kg 79.545 kg ?? (04/29/2011 08:06:00) ?? (04/27/2011 14:11:00) ?? Results BACTERIAL - SEROLOGY Most recent to oldest [Reference Range]: 1 2 3 MRSA by PCR Negative 1 ? (04/29/2011 15:00:00) ?? 1Interpretive Data: INTERPRETATION: Negative......No MRSA DNA detected by PCR Positive......MRSA DNA detected by PCRASSAY LIMITATIONS:This is a screening test for colonization by MRSA. A positivetest result indicates the patient is colonized by MRSA, but does not necessarily mean that an infection is present or that treatment is necessary. Likewise, a negative test does not exclude colonization or infection. Patients should be evaluatedclinically for symptoms and signs of infection before making therapeutic decisions. Routine decolonization is discouraged and should only be considered forselect patients after consultation with an infectious diseases specialist.BEDSIDE GLUCOSE TESTING Most recent to 1 2 3 [Reference Range]: Gluc POC Lifscn [65-110 96 mg/dL 2 117 mg/dL 3 89 mg/dL 4 mg/dL] (04/30/2011 07:38:00) ?? *HI* (04/30/2011 00:12:00) ?? (04/30/2011 03:45:00) ?? Comment1 Notify RN/MD Notify RN/MD Notify RN/MD *NA* *NA* *NA* (04/30/2011 03:45:00) ?? (04/30/2011 00:12:00) ?? (04/29/2011 19:46:00) ?? 2Interpretive Data: Upper Reportable Limit: 200 mg/dL.3Interpretive Data: Upper Reportable Limit: 200 mg/dL.4Interpretive Data: Upper Reportable Limit: 200 mg/dL.BLOOD BANK RESULTS Most recent to [Reference Range]: 1 2 3 ABO/Rh O POS ? *Unknown* (04/27/2011 14:35:00) ?? Antibody Scrn Negative ? (04/27/2011 14:35:00) ?? CHEMISTRY Most recent to oldest [Reference 1 2 3 Range]: Sodium Lvl [135-145 mEq/L] 138 mEq/L 141 mEq/L ?? (04/30/2011 02:29:00) ?? (04/27/2011 13:00:00) ?? Potassium Lvl [3.5-5.1 mEq/L] 4.2 mEq/L 3.9 mEq/L ?? (04/30/2011 02:29:00) ?? (04/27/2011 13:00:00) ?? Chloride Lvl [95-109 mEq/L] 105 mEq/L 102 mEq/L ?? (04/30/2011 02:29:00) ?? (04/27/2011 13:00:00) ?? CO2 [24-32 mEq/L] 23 mEq/L 26 mEq/L ?? *LOW* (04/27/2011 13:00:00) ?? (04/30/2011 02:29:00) ?? AGAP [10.0-20.0 mEq/L] 14.2 mEq/L 16.9 mEq/L ?? (04/30/2011 02:29:00) ?? (04/27/2011 13:00:00) ?? Creatinine Lvl [0.5-1.4 mg/dL] 0.8 mg/dL 0.7 mg/dL ?? (04/30/2011 02:29:00) ?? (04/27/2011 13:00:00) ?? BUN [7-22 mg/dL] 12 mg/dL 20 mg/dL ?? (04/30/2011 02:29:00) ?? (04/27/2011 13:00:00) ?? Glucose Lvl 101 mg/dL 5 90 mg/dL 6 ?? *NA* *NA* (04/30/2011 02:29:00) ?? (04/27/2011 13:00:00) ?? Calcium Lvl [8.5-10.5 mg/dL] 8.3 mg/dL 10.1 mg/dL ?? *LOW* (04/27/2011 13:00:00) ?? (04/30/2011 02:29:00) ?? Phosphorus [2.5-4.5 mg/dL] 3.4 mg/dL 3.2 mg/dL ?? (04/30/2011 02:29:00) ?? (04/29/2011 16:20:00) ?? Magnesium Lvl [1.8-2.4 mg/dL] 2.0 mg/dL 1.9 mg/dL ?? (04/30/2011 02:29:00) ?? (04/29/2011 16:20:00) ?? Ca Ion mgdL [4.65-5.20 mg/dL] 4.80 mg/dL 4.32 mg/dL ?? (04/30/2011 02:29:00) ?? *LOW* (04/29/2011 16:20:00) ?? Ca Ion [1.16-1.30 mMol/L] 1.20 mMol/L 1.08 mMol/L ?? (04/30/2011 02:29:00) ?? *LOW* (04/29/2011 16:20:00) ?? Ca Norm [1.16-1.30 mMol/L] 1.21 mMol/L 1.05 mMol/L ?? (04/30/2011 02:29:00) ?? *LOW* (04/29/2011 16:20:00) ?? Ca Norm mgdL [4.65-5.20 mg/dL] 4.84 mg/dL 4.20 mg/dL ?? (04/30/2011 02:29:00) ?? *LOW* (04/29/2011 16:20:00) ?? 5Interpretive Data: Reference Ranges : 0 - 7 days : 41 - 90 mg/dL7 days - 150 yrs : 70 - 99 mg/dL (fasting), based on the clinical recommendations of the [place] [employer].6Interpretive Data: Reference Ranges : 0 - 7 days : 41 - 90 mg/dL7 days - 150 yrs : 70 - 99 mg/dL (fasting), based on the clinical recommendations of the [place] [employer].HEMATOLOGY Most recent to oldest 1 2 3 [Reference Range]: WBC [3.7-10.4 K/CMM] 8.6 K/CMM 11.2 K/CMM 7.0 K/CMM (04/30/2011 02:29:00) ?? *HI* (04/27/2011 13:00:00) ?? (04/29/2011 16:20:00) ?? RBC [4.20-5.40 M/CMM] 3.58 M/CMM 3.76 M/CMM 4.29 M/CMM *LOW* *LOW* (04/27/2011 13:00:00) ?? (04/30/2011 02:29:00) ?? (04/29/2011 16:20:00) ?? Hgb [12.0-16.0 g/dL] 11.2 g/dL 11.7 g/dL 13.4 g/dL *LOW* *LOW* (04/27/2011 13:00:00) ?? (04/30/2011 02:29:00) ?? (04/29/2011 16:20:00) ?? Hct [36.0-48.0 %] 32.9 % 34.9 % 40.0 % *LOW* *LOW* (04/27/2011 13:00:00) ?? (04/30/2011 02:29:00) ?? (04/29/2011 16:20:00) ?? MCV [81.0-99.0 fL] 92.0 fL 92.7 fL 93.1 fL (04/30/2011 02:29:00) ?? (04/29/2011 16:20:00) ?? (04/27/2011 13:00:00) ?? MCH [27.0-31.0 pg] 31.4 pg 31.1 pg 31.3 pg *HI* *HI* *HI* (04/30/2011 02:29:00) ?? (04/29/2011 16:20:00) ?? (04/27/2011 13:00:00) ?? MCHC [32.0-36.0 g/dL] 34.2 g/dL 33.5 g/dL 33.6 g/dL (04/30/2011 02:29:00) ?? (04/29/2011 16:20:00) ?? (04/27/2011 13:00:00) ?? RDW [11.5-14.5 %] 12.7 % 12.9 % 12.9 % (04/30/2011 02:29:00) ?? (04/29/2011 16:20:00) ?? (04/27/2011 13:00:00) ?? Platelet [133-450 K/CMM] 209 K/CMM 200 K/CMM 235 K/CMM (04/30/2011 02:29:00) ?? (04/29/2011 16:20:00) ?? (04/27/2011 13:00:00) ?? MPV [7.4-10.4 fL] 9.1 fL 9.4 fL 9.6 fL (04/30/2011 02:29:00) ?? (04/29/2011 16:20:00) ?? (04/27/2011 13:00:00) ?? Segs [45.0-75.0 %] 78.3 % 83.3 % 64.8 % *HI* *HI* (04/27/2011 13:00:00) ?? (04/30/2011 02:29:00) ?? (04/29/2011 16:20:00) ?? Lymphocytes [20.0-40.0 %] 14.9 % 11.5 % 27.4 % *LOW* *LOW* (04/27/2011 13:00:00) ?? (04/30/2011 02:29:00) ?? (04/29/2011 16:20:00) ?? Monocytes [2.0-12.0 %] 5.5 % 4.6 % 5.7 % (04/30/2011 02:29:00) ?? (04/29/2011 16:20:00) ?? (04/27/2011 13:00:00) ?? Eosinophils [0.0-4.0 %] 0.9 % 0.3 % 1.5 % (04/30/2011 02:29:00) ?? (04/29/2011 16:20:00) ?? (04/27/2011 13:00:00) ?? Basophils [0.0-1.0 %] 0.4 % 0.3 % 0.6 % (04/30/2011 02:29:00) ?? (04/29/2011 16:20:00) ?? (04/27/2011 13:00:00) ?? Segs-Bands # [1.5-8.1 6.7 K/CMM 9.4 K/CMM 4.5 K/CMM K/CMM] (04/30/2011 02:29:00) ?? *HI* (04/27/2011 13:00:00) ?? (04/29/2011 16:20:00) ?? Lymphocytes # [1.0-5.5 1.3 K/CMM 1.3 K/CMM 1.9 K/CMM K/CMM] (04/30/2011 02:29:00) ?? (04/29/2011 16:20:00) ?? (04/27/2011 13:00: 00) ?? Monocytes # [0.0-0.8 0.5 K/CMM 0.5 K/CMM 0.4 K/CMM K/CMM] (04/30/2011 02:29:00) ?? (04/29/2011 16:20:00) ?? (04/27/2011 13:00: 00) ?? Eosinophils # [0.0-0.5 0.1 K/CMM 0.0 K/CMM 0.1 K/CMM K/CMM] (04/30/2011 02:29:00) ?? (04/29/2011 16:20:00) ?? (04/27/2011 13:00: 00) ?? Basophils # [0.0-0.2 0.0 K/CMM 0.0 K/CMM 0.0 K/CMM K/CMM] (04/30/2011 02:29:00) ?? (04/29/2011 16:20:00) ?? (04/27/2011 13:00: 00) ?? RBC Morph Normal ? (04/29/2011 16:20:00) ?? Plt Morph Normal ? (04/29/2011 16:20:00) ?? PT [12.0-14.7 seconds] 13.9 seconds 13.5 seconds 13.2 seconds (04/30/2011 02:29:00) ?? (04/29/2011 16:20:00) ?? (04/27/2011 13:00:00) ?? INR [0.85-1.17] 1.07 7 1.03 8 1.00 9 (04/30/2011 02:29:00) ?? (04/29/2011 16:20:00) ?? (04/27/2011 13:00:00) ?? PTT [22.9-35.8 seconds] 31.3 seconds 10 29.8 seconds 11 31.5 seconds 12 (04/30/2011 02:29:00) ?? (04/29/2011 16:20:00) ?? (04/27/2011 13:00:00) ?? 7Interpretive Data: RECOMMENDED RANGES FOR PROTIME INR: 2.0-3.0 for most medical and surgical thromboembolic states. 2.5-3.5 for artificial heart valves and recurrent embolism.INR SHOULD BE USED ONLY FOR PATIENTS ON STABLE ANTICOAGULANT THERAPY.8Interpretive Data: RECOMMENDED RANGES FOR PROTIME INR: 2.0-3.0 for most medical and surgical thromboembolic states. 2.5-3.5 for artificial heart valves and recurrent embolism.INR SHOULD BE USED ONLY FOR PATIENTS ON STABLE ANTICOAGULANT THERAPY.9Interpretive Data: RECOMMENDED RANGES FOR PROTIME INR: 2.0-3.0 for most medical and surgical thromboembolic states. 2.5-3.5 for artificial heart valves and recurrent embolism.INR SHOULD BE USED ONLY FOR PATIENTS ON STABLE ANTICOAGULANT THERAPY.10Interpretive Data: Heparin Therapeutic Range: 57 - 92 [id number] Data: Heparin Therapeutic Range: 57 - 92 [id number] Data: Heparin Therapeutic Range: 57 - 92 Seconds Microbiology Reports PROCEDURE:Culture: Resistant Acinetobacter Screen STATUS: Auth (Verified) BODY SITE: ?? COLLECTED DATE/TIME: 04/29/2011 15:00:00 SOURCE: Nasal Wash FREE TEXT SOURCE: [facility] FINAL REPORTS Final ReportNo Acinetobacter IsolatedPRELIMINARY REPORTS Preliminary ReportCulture In Progress
--- OUTSIDE RECORDS SUMMARY | 2019-01-14 23:09 | XMS REPORT | Summary of Care ---
:1940 Author Organization [facility] Address [address], [address] [place] [address]- Encounter HQ Encntr_alimarika(FIN) [phone] Date(s): 11/18/17 - 11/19/17 [facility] [address], [address] [place] [address]- [phone] Vital Signs No data available for this [...]
--- OUTSIDE RECORDS SUMMARY | 2019-01-14 23:09 | XMS REPORT | CCD ---
:1940 Author Organization [facility] Care Team Providers Name Role Phone Ramona Fausto Morales Referring Provider Allergies, Adverse Reactions, Alerts Substance Reaction Status NKDA Active Problem List Condition Effective Dates Status Cerebral angiogram Active Operative procedure on cerebral aneurysm 04/29/2011 Active Medications Medication Instructions Start Date End Date Status Zofran 4 mg, 2 mL, Route: IVP, 10/15/2011 10/15/2011 Discontinued Drug form: INJ, Q4H, PRN Nausea & Vomiting, Start date: 10/15/11 12:21:00, Duration: 30 day, Stop date: 11/14/11 12:20:00 Sodium Chloride 0.9% IV 1,000 mL, Rate: 125 ml/hr, 10/15/2011 10/15/2011 Discontinued 1,000 mL Infuse over: 8 hr, Route: IV, Total Volume: 1,000, Start date: 10/15/11 12:10:00, Duration: 30 day, Stop date: 11/14/11 12:09:00 Bystolic 10 mg oral 10 mg, 1 tab, PO, Daily, 10/15/2011 Ordered tablet 30 tab, Substitution Allowed, TAB Vital Signs Most recent to oldest [Reference Range]: 1 Height 162.56 cm (10/15/2011 06:26:00) Systolic Blood Pressure [90-140 mmHg] 137 mmHg (10/15/2011 06:47:00) Diastolic Blood Pressure [60-90 mmHg] 72 mmHg (10/15/2011 06:47:00) Respiratory Rate [14-20 BRMIN] 20 BRMIN (10/15/2011 06:47:00) Peripheral Pulse Rate [60-100 bpm] 71 bpm (10/15/2011 06:47:00) Weight 80.455 kg (10/15/2011 06:26:00)
--- OUTSIDE RECORDS SUMMARY | 2019-01-14 23:09 | XMS REPORT | Summary of Care ---
:1940 Author Organization [facility] Address [address] [place] [address]- Encounter [employer](FIN) [phone] Date(s): 01/21/17 - 01/21/17 [facility] [address] [place] [address]- us [phone] Discharge Disposition: Home or Self Care Attending Physician: Magy Stoner MD Referring Physician: Magy Stoner MD Vital Signs Most recent to oldest 1 2 3 [Reference Range]: Height 162.56 cm (01/14/17 9:00 AM) Blood Pressure [90-140/60-90 151/81 mmHg 150/83 mmHg 144/62 mmHg mmHg] *HI* *HI* *HI* (01/21/17 12:30 PM) (01/21/17 12:15 PM) (01/21/17 12:00 PM) Respiratory Rate [14-20 15 BRMIN 20 BRMIN 14 BRMIN BRMIN] (01/21/17 12:30 PM) (01/21/17 12:15 PM) (01/21/17 12:00 PM) Peripheral Pulse Rate 61 bpm [60-100 bpm] (01/21/17 9:16 AM) Weight 84.091 kg (01/14/17 9:00 AM) Body Mass Index 31.82 m2 (01/14/17 9:00 AM) Problem List Condition Effective Dates Status [...] Substance Reaction Severity Status NKDA Active Medications ANES flumazenil 0.2 mg, 2 mL, Route: IVP, Drug form: INJ, PRN, Dosing Weight 84.091, kg, PRN Benzodiazepine Reversal, Initial dose, Start date: 01/21/17 11:43:00 CDT, Duration: 30 day, Stop date: 02/20/17 11:42:00 CDT Notes: (Same as: Romazicon) Start Date: 01/21/17 Stop Date: 01/21/17 Status: DiscontinuedANES flumazenil 0.2 mg, 2 mL, Route: IVP, Drug form: INJ, PRN, Dosing Weight 84.091, kg, PRN Benzodiazepine Reversal, Initial dose, Start date: 01/21/17 11:32:00 CDT, Duration: 30 day, Stop date: 02/20/17 11:31:00 CDT Notes: (Same as: Romazicon) Start Date: 01/21/17 Stop Date: 01/21/17 Status: DiscontinuedANES naloxone 0.4 mg, 1 mL, Route: IVP, Drug form: INJ, Q2MIN, Dosing Weight 84.091, kg, PRN Narcotic Reversal, Start date: 01/21/17 11:43:00 CDT, Duration: 8 doses or times , Stop date: Limited # of times Notes: Same as Narcan Start Date: 01/21/17 Stop Date: 01/21/17 Status: DiscontinuedANES naloxone 0.4 mg, 1 mL, Route: IVP, Drug form: INJ, Q2MIN, Dosing Weight 84.091, kg, PRN Narcotic Reversal, Start date: 01/21/17 11:32:00 CDT, Duration: 8 doses or times , Stop date: Limited # of times Notes: Same as Narcan Start Date: 01/21/17 Stop Date: 01/21/17 Status: DiscontinuedANES ondansetron 4 mg, 2 mL, Route: IVP, Drug form: INJ, ONCE, Dosing Weight 84.091, kg, PRN Nausea & Vomiting, Start date: 01/21/17 11:43:00 CDT Notes: (Same as: Zofran) MEDICATION WASTE Product Size: 4 mgProduct Wasted: ___ mg Start Date: 01/21/17 Stop Date: 01/21/17 Status: DiscontinuedANES ondansetron 4 mg, 2 mL, Route: IVP, Drug form: INJ, ONCE, Dosing Weight 84.091, kg, PRN Nausea & Vomiting, Start date: 01/21/17 11:32:00 CDT Notes: (Same as: Zofran) MEDICATION WASTE Product Size: 4 mgProduct Wasted: ___ mg Start Date: 01/21/17 Stop Date: 01/21/17 Status: Discontinuedchlorthalidone 25 mg oral tablet 25 mg=1 tab, PO, Daily, # 30 tab, 0 Refill(s) Start Date: 01/14/17 Status: Orderedfolic acid 0.4 mg oral tablet 0.4 mg=1 tab, PO, Daily, # 100 tab, 0 Refill(s) Start Date: 01/14/17 Status: OrderedLactated Ringers 1,000 mL 1,000 mL, Rate: 25 ml/hr, Infuse over: 40 hr, Route: IV, Dosing Weight 84.091 kg , Total Volume: 1,000, Start date: 01/21/17 9:10:00 CDT, Duration: 12 hr, Stop date: 01/21/17 21:09:00 CDT Start Date: 01/21/17 Stop Date: 01/21/17 Status: DiscontinuedLivalo 2 mg oral tablet 2 mg=1 tab, PO, Bedtime, # 30 tab, 3 Refill(s) Start Date: 01/14/17 Status: Ordered Results No data available for this section Immunizations No data available for this section Procedures Procedure Date Related Diagnosis Body Site Brain operations1 10/21/10 Cataract surgery Knee arthroplasty 1ANURYSM Social History Social History Type Response Alcohol Past Smoking Status Former smoker; Exposure to Tobacco Smoke None; Cigarette Smoking Last 365 Days No; Reg Smoking Cessation Counseling No Assessment and Plan No data available for this section
--- OUTSIDE RECORDS SUMMARY | 2019-01-14 23:09 | XMS REPORT | Summary of Care ---
:1940 Author Organization [facility] [place] Address [address] [place] [address]- Encounter [employer](FIN) [phone] Date(s): 11/11/17 - 11/11/17 [facility] [place] [address] [place] [address]- [phone] Discharge Disposition: Home or Self Care Attending Physician: Galdino Bowles MD Vital Signs No data available for this [...]
[2019-01-14 23:50] LABS: Basophils % 0.7 % (0-1.3); Hematocrit 36.7 % (36.0-45.0); MPV 10.6 fL (7.6-11.3)
[2019-01-14 23:54] LABS: Protime INR 0.99
[2019-01-14] MEDS ORDERED: ASPIRIN 81 MG CHEWABLE TABLET ONE (23:56)
[2019-01-15 00:03] LABS: BUN Blood Urea Nitrogen 36 mg/dL (7-18); Bicarbonate 27 mmol/L (21-32); Glucose Level 120 mg/dL (74-106); Magnesium 2.1 mg/dL (1.8-2.4); Potassium 3.7 mmol/L (3.5-5.1); Sodium Level 139 mmol/L (136-145); Troponin (Emerg Dept Use Only) < 0.02 ng/mL (0.0-0.045)
--- NOTE | 2019-01-15 01:04 | ER ---
Nurse's Notes [facility] Name: Lizeth Richter Age: 78 yrs Sex: Female : 1940 Arrival Date: 01/14/2019 Time: 23:07 Bed 3 Private MD: Diagnosis: Transient cerebral ischemic attack, unspecified Presentation: 01/14 23:03 Presenting complaint: Patient states: that she was visiting with friends and then all fc of a sudden could not remember their names and was not speaking correctly. No noted weakness. Transition of care: patient was not received from another setting of care. No acute neurological deficit is noted. Pre-hospital glucose is not applicable to this patient. Onset of symptoms was January 14, 2019 at 20:00. Risk Assessment: Do you want to hurt yourself or someone else? Patient reports no desire to harm self or others. Initial Sepsis Screen: Does the patient meet any 2 criteria? No. Patient's initial sepsis screen is negative. Does the patient have a suspected source of infection? No. Patient's initial sepsis screen is negative. Care prior to arrival: None. 23:03 Method Of Arrival: Wheelchair fc 23:03 Acuity: KEANU 2 fc Triage Assessment: 23:03 The onset of the patients symptoms was January 14, 2019 at 20:00. fc 23:10 Neuro: Reports Pt stated that she momentarily forgot her friends names and had tl2 difficulty speaking. Symptoms have resolved at this time. Denies. Stroke Activation: Symtpom onset >3 hours and < 6 hours Physician: Stroke Attending; Name: ; Notified At: ; Arrived At: Physician: Chief Stroke Resident; Name: ; Notified At: ; Arrived At: Physician: Stroke Resident; Name: ; Notified At: ; Arrived At: Physician: ED Attending; Name: Tong Castellano Md; Notified At: 23:07; Arrived At: 23:07 Physician: ED Resident; Name: ; Notified At: ; Arrived At: Historical: - Allergies: 23:28 No Known Allergies; fc - Home Meds: 23:28 losartan-hydrochlorothiazide 100-25 mg oral tab 1 tab once daily [Active]; Bystolic 20 fc mg oral tab 1 tab once daily [Active]; chlorthalidone 25 mg Oral tab 1 tab once daily [Active]; - PMHx: 23:28 Hypertension; brain anuersym; fc - PSHx: 23:28 Cholecystectomy; Knee surgery; hip surg; Carpal Tunnel Repair; Brain coil; fc - Immunization history:: Last tetanus immunization: unknown. - Social history:: Smoking status: Patient/guardian denies using tobacco, Patient uses alcohol, on a daily basis. Wine. - Ebola Screening: : Patient negative for fever greater than or equal to 101.5 degrees Fahrenheit, and additional compatible Ebola Virus Disease symptoms Patient denies exposure to infectious person Patient denies travel to an Ebola-affected area in the 21 days before illness onset. Screenin:03 Abuse screen: Denies threats or abuse. Nutritional screening: No deficits noted. Tuberculosis screening: No symptoms or risk factors identified. Fall Risk None identified. 23:27 The patient has not been NPO before screening. The patient is alert, able to follow tl2 commands. The patient does not exhibit slurred or garbled speech The patient is not exhibiting difficulty speaking. The patient does not exhibit difficulty understanding words. The patient is able to swallow own secretions with no drooling or need for suction. Patient tolerated one teaspoon of water. No drooling, immediate coughing, gurgling, or clearing of the throat was noted. The patient tolerated 90mL of water. No drooling, immediate coughing, gurgling, or clearing of the throat was noted. The patient passed the bedside swallow screening. Oral medications may be given as ordered. Contact Physician for further diet orders. Assessment: 23:10 General: Appears in no apparent distress. uncomfortable, Behavior is calm, cooperative, tl2 appropriate for age. Pain: Denies pain. Neuro: Level of Consciousness is awake, alert, obeys commands, Oriented to person, place, time, situation, Paper Folder are equal bilaterally Moves all extremities. Speech is normal, Facial symmetry appears normal, Pupils are PERRLA, Intact Denies weakness blurred vision dizziness. Cardiovascular: Denies chest pain. Respiratory: Airway is patent Respiratory effort is even, unlabored, Respiratory pattern is regular, symmetrical. GI: No deficits noted. Derm: Skin is pink, warm \T\ dry. 23:28 The patient has not been NPO before screening. The patient is alert, and able to follow tl2 commands. The patient does not exhibit slurred or garbled speech. The patient is not exhibiting difficulty speaking. The patient does not exhibit difficulty understanding words. The patient is able to swallow own secretions with no drooling or need for suction. Patient tolerated one teaspoon of water. No drooling, immediate coughing, gurgling, or clearing of the throat was noted. The patient tolerated 90mL of water. No drooling, immediate coughing, gurgling, or clearing of the throat was noted. The patient passed the bedside swallow screening. Oral medications may be given as ordered. Contact Physician for further diet orders. Provider notified of bedside swallow screening results: Krishna MEDINA. 23:29 VAN Scoring: Arm Drift: Patients demonstrates NO arm weakness. Patient is VAN Negative. tl2 Visual Disturbance: No visual disturbance noted. Aphasia: No aphasia noted. Neglect: No neglect noted. 01/15 00:11 T-PA (Activase) Screening: Indications: Treatment will start within 4.5 hours onset of tl2 symptoms: Yes. 01:08 Reassessment: Patient appears in no apparent distress at this time. Patient and/or tl2 family updated on plan of care and expected duration. Pain level reassessed. Patient is alert, oriented x 3, equal unlabored respirations, skin warm/dry/pink. pt verbalized understanding of discharge instructions, need for follow up. Vital Signs: 01/14 23:03 BP 182 / 74; Pulse 85; Resp 18; Temp 98.3(O); Pulse Ox 98% on R/A; Weight 83.91 kg (R); fc Height 5 ft. 4 in. (162.56 cm) (R); Pain 4/10; 23:27 BP 163 / 68; Pulse 85; Resp 14; Pulse Ox 100% on R/A; tl2 01/15 00:11 BP 153 / 65; Pulse 69; Resp 18; Pulse Ox 98% on R/A; tl2 00:55 BP 154 / 72; Pulse 76; Resp 19; Pulse Ox 99% on R/A; tl2 01/14 23:03 Body Mass Index 31.75 (83.91 kg, 162.56 cm) NIH Stroke Scale Scores: 01/14 23:10 NIHSS Score: 0 23:29 NIHSS Score: 0 tl2 01/15 00:38 NIHSS Score: 0 jr8 ED Course: 01/14 23:03 Arm band placed on Patient placed in an exam room, on a stretcher. fc 23:03 Patient has correct armband on for positive identification. Placed in gown. Bed in low fc position. Call light in reach. Side rails up X2. gambling monitor on. Pulse ox on. NIBP on. 23:03 No provider procedures requiring assistance completed. fc 23:07 Patient arrived in ED. es 23:12 Inserted saline lock: 20 gauge in right antecubital area, using aseptic technique. fc ,using aseptic technique. per Rosario MODI Blood collected. 23:17 Krishna Michaud PA is PHCP. jr8 23:17 Syed Fortune MD is Attending Physician. jr8 23:21 Triage completed. fc 23:27 EKG done, by ED staff, reviewed by Krishna MEDINA. fc 23:30 X-ray(s) taken. fc 23:31 CT Stroke Brain w/o Contrast In Process Unspecified. EDMS 23:34 X-ray completed. Portable x-ray completed in exam room. Patient tolerated procedure mh1 well. 23:36 Stroke CXR 1 View In Process Unspecified. EDMS 01/15 00:55 Chayito Jesus, LY is Primary Nurse. tl2 01:08 IV discontinued, intact, bleeding controlled, No redness/swelling at site. Pressure tl2 dressing applied. Administered Medications: 01/14 23:57 Drug: Aspirin Chewable Tablet 324 mg Route: PO; tl2 01/15 00:00 Follow up: Response: No adverse reaction tl2 Point of Care Testing: Blood Glucose: 01/14 23:11 Blood Glucose: 125 mg/dL; Ranges: Outcome: 01/15 01:02 Discharge ordered by . jr8 01:08 Discharged to home ambulatory, with family. tl2 01:08 Condition: stable 01:08 Discharge instructions given to patient, family, Instructed on discharge instructions, follow up and referral plans. Demonstrated understanding of instructions, follow-up care. 01:12 Patient left the ED. tl2 NIH Stroke Scale - NIH Stroke Score Date: 01/14/2019 Time: 23:10 Total Score = 0 1a. Level of Consciousness (LOC) - 0(Alert) 1b. Level of Consciousness (LOC) (Year \T\ Age) - 0(Both) 1c. LOC Commands (Open \T\ Closes Eyes/Psychology Clinician) - 0(Both) 2. Best Gaze (Lateral Gaze Paresis) - 0(Normal) 3. Visual Field Loss - 0(No visual loss) 4. Facial Palsy - 0(Normal) 5a. Left Arm: Motor (10-second hold) - 0(No drift) 5b. Right Arm: Motor (10-second hold) - 0(No drift) 6a. Left Leg: Motor (5-second hold - always test supine) - 0(No drift) 6b. Right Leg: Motor (5-second hold - always test supine) - 0(No drift) 7. Limb Ataxia (finger/nose \T\ heel/doan - test with eyes open) - 0(Absent) 8. Sensory Loss (pinprick arms/legs/face) - 0(Normal) 9. Best Language: Aphasia (description/naming/reading) - 0(No aphasia) 10. Dysarthria (speech clarity - read or repeat words) - 0(Normal) 11. Extinction and Inattention (visual/tactile/auditory/spatial/personal) - 0(No abnormality) Initials: NIH Stroke Scale - NIH Stroke Score Date: 01/14/2019 Time: 23:29 Total Score = 0 1a. Level of Consciousness (LOC) - 0(Alert) 1b. Level of Consciousness (LOC) (Year \T\ Age) - 0(Both) 1c. LOC Commands (Open \T\ Closes Eyes/Psychology Clinician) - 0(Both) 2. Best Gaze (Lateral Gaze Paresis) - 0(Normal) 3. Visual Field Loss - 0(No visual loss) 4. Facial Palsy - 0(Normal) 5a. Left Arm: Motor (10-second hold) - 0(No drift) 5b. Right Arm: Motor (10-second hold) - 0(No drift) 6a. Left Leg: Motor (5-second hold - always test supine) - 0(No drift) 6b. Right Leg: Motor (5-second hold - always test supine) - 0(No drift) 7. Limb Ataxia (finger/nose \T\ heel/doan - test with eyes open) - 0(Absent) 8. Sensory Loss (pinprick arms/legs/face) - 0(Normal) 9. Best Language: Aphasia (description/naming/reading) - 0(No aphasia) 10. Dysarthria (speech clarity - read or repeat words) - 0(Normal) 11. Extinction and Inattention (visual/tactile/auditory/spatial/personal) - 0(No abnormality) Initials: tl2 NIH Stroke Scale - NIH Stroke Score Date: 01/15/2019 Time: 00:38 Total Score = 0 1a. Level of Consciousness (LOC) - 0(Alert) 1b. Level of Consciousness (LOC) (Year \T\ Age) - 0(Both) 1c. LOC Commands (Open \T\ Closes Eyes/Psychology Clinician) - 0(Both) 2. Best Gaze (Lateral Gaze Paresis) - 0(Normal) 3. Visual Field Loss - 0(No visual loss) 4. Facial Palsy - 0(Normal) 5a. Left Arm: Motor (10-second hold) - 0(No drift) 5b. Right Arm: Motor (10-second hold) - 0(No drift) 6a. Left Leg: Motor (5-second hold - always test supine) - 0(No drift) 6b. Right Leg: Motor (5-second hold - always test supine) - 0(No drift) 7. Limb Ataxia (finger/nose \T\ heel/doan - test with eyes open) - 0(Absent) 8. Sensory Loss (pinprick arms/legs/face) - 0(Normal) 9. Best Language: Aphasia (description/naming/reading) - 0(No aphasia) 10. Dysarthria (speech clarity - read or repeat words) - 0(Normal) 11. Extinction and Inattention (visual/tactile/auditory/spatial/personal) - 0(No abnormality) Initials: jr8 Signatures: Dispatcher [employer] Elizabeth Hernandez Martha 1 Alexa Hill, RN RN fc Krishna Michaud PA PA jr8 Chayito Jesus, RN RN tl2 Corrections: (The following items were deleted from the chart) 01/14 23:25 23:03 BP 182 / 74; Pulse 85bpm; Resp 18bpm; Pulse Ox 98% RA; 83.91 kg Reported; fc Height 5 ft. 4 in. Reported; BMI: 31.7; Pain 4/10; fc
--- NOTE | 2019-01-15 01:05 | EDPHYS ---
Physician Documentation [facility] Name: Lizeth Richter Age: 78 yrs Sex: Female : 1940 Arrival Date: 01/14/2019 Time: 23:07 Bed 3 Private MD: ED Physician Syed Fortune HPI: 01/15 00:38 This 78 yrs old Female presents to ER via Wheelchair with complaints of S/S jr8 of Possible Stroke. 00:38 The patient's problem is reported as altered mental status, disoriented to confused, jr8 dysphasia, incoherent speech. Onset: The symptoms/episode began/occurred acutely, today. Duration: This was a single incident. Context: the episode(s) was witnessed, by family, symptoms became apparent at 20:00. occurred at a friend's home, occurred while the patient was at rest. The symptoms are alleviated by nothing. The symptoms are aggravated by nothing. Associated signs and symptoms: The patient has no apparent associated signs or symptoms. Severity of symptoms: At their worst the symptoms were moderate in the emergency department the symptoms have resolved. Patient's baseline: Neuro: alert and fully oriented, Motor: no deficits, Ambulation: walks without assistance, Speech: normal. The patient has not experienced similar symptoms in the past. The patient has not recently seen a physician. Historical: - Allergies: 01/14 23:28 No Known Allergies; fc - Home Meds: 23:28 losartan-hydrochlorothiazide 100-25 mg oral tab 1 tab once daily [Active]; Bystolic 20 fc mg oral tab 1 tab once daily [Active]; chlorthalidone 25 mg Oral tab 1 tab once daily [Active]; - PMHx: 23:28 Hypertension; brain anuersym; fc - PSHx: 23:28 Cholecystectomy; Knee surgery; hip surg; Carpal Tunnel Repair; Brain coil; fc - Immunization history:: Last tetanus immunization: unknown. - Social history:: Smoking status: Patient/guardian denies using tobacco, Patient uses alcohol, on a daily basis. Wine. - Ebola Screening: : Patient negative for fever greater than or equal to 101.5 degrees Fahrenheit, and additional compatible Ebola Virus Disease symptoms Patient denies exposure to infectious person Patient denies travel to an Ebola-affected area in the 21 days before illness onset. ROS: 01/15 00:38 Eyes: Negative for injury, pain, redness, and discharge, ENT: Negative for injury, jr8 pain, and discharge, Neck: Negative for injury, pain, and swelling, Cardiovascular: Negative for chest pain, palpitations, and edema, Respiratory: Negative for shortness of breath, cough, wheezing, and pleuritic chest pain, Abdomen/GI: Negative for abdominal pain, nausea, vomiting, diarrhea, and constipation, Back: Negative for injury and pain, MS/Extremity: Negative for injury and deformity, Skin: Negative for injury, rash, and discoloration. Neuro: Positive for altered mental status, speech changes. Exam: 00:38 Radiologist reports: coils present. Mild artifact. Otherwise no apparent acute findings jr8 00:38 Head/Face: Normocephalic, atraumatic. Eyes: Pupils equal round and reactive to light, extra-ocular motions intact. Lids and lashes normal. Conjunctiva and sclera are non-icteric and not injected. Cornea within normal limits. Periorbital areas with no swelling, redness, or edema. ENT: Nares patent. No nasal discharge, no septal abnormalities noted. Tympanic membranes are normal and external auditory canals are clear. Oropharynx with no redness, swelling, or masses, exudates, or evidence of obstruction, uvula midline. Mucous membranes moist. Neck: Trachea midline, no thyromegaly or masses palpated, and no cervical lymphadenopathy. Supple, full range of motion without nuchal rigidity, or vertebral point tenderness. No Meningismus. Chest/axilla: Normal chest wall appearance and motion. Nontender with no deformity. No lesions are appreciated. Cardiovascular: Regular rate and rhythm with a normal S1 and S2. No gallops, murmurs, or rubs. Normal PMI, no JVD. No pulse deficits. Respiratory: Lungs have equal breath sounds bilaterally, clear to auscultation and percussion. No rales, rhonchi or wheezes noted. No increased work of breathing, no retractions or nasal flaring. Abdomen/GI: Soft, non-tender, with normal bowel sounds. No distension or tympany. No guarding or rebound. No evidence of tenderness throughout. Back: No spinal tenderness. No costovertebral tenderness. Full range of motion. Skin: Warm, dry with normal turgor. Normal color with no rashes, no lesions, and no evidence of cellulitis. MS/ Extremity: Pulses equal, no cyanosis. Neurovascular intact. Full, normal range of motion. Neuro: Awake and alert, GCS 15, oriented to person, place, time, and situation. Cranial nerves II-XII grossly intact. Motor strength 5/5 in all extremities. Sensory grossly intact. Cerebellar exam normal. Normal gait. Vital Signs: 01/14 23:03 BP 182 / 74; Pulse 85; Resp 18; Temp 98.3(O); Pulse Ox 98% on R/A; Weight 83.91 kg (R); fc Height 5 ft. 4 in. (162.56 cm) (R); Pain 4/10; 23:27 BP 163 / 68; Pulse 85; Resp 14; Pulse Ox 100% on R/A; tl2 01/15 00:11 BP 153 / 65; Pulse 69; Resp 18; Pulse Ox 98% on R/A; tl2 00:55 BP 154 / 72; Pulse 76; Resp 19; Pulse Ox 99% on R/A; tl2 01/14 23:03 Body Mass Index 31.75 (83.91 kg, 162.56 cm) NIH Stroke Scale Scores: 01/14 23:10 NIHSS Score: 0 23:29 NIHSS Score: 0 tl2 01/15 00:38 NIHSS Score: 0 [facility] MDM: 01/14 23:17 Patient medically screened. 8 01/15 00:38 Data reviewed: vital signs, nurses notes, lab test result(s), EKG, radiologic studies, jr8 CT scan, plain films. Data interpreted: Pulse oximetry: on room air is 98 %. Interpretation: normal. Counseling: I had a detailed discussion with the patient and/or guardian regarding: the historical points, exam findings, and any diagnostic results supporting the discharge/admit diagnosis, lab results, radiology results, the need for outpatient follow up, a pre school teacher, a neurologist, to return to the emergency department if symptoms worsen or persist or if there are any questions or concerns that arise at home. ED course: Patient with complete resolution of symptoms. TIA suspected. No other acute abnormality noted. Started patient on aspirin. Due to resolved symptoms. No tPA indicated . 01:00 ED course: Patient doing well. No focal deficits at this time. Remains stable and jr8 asymptomatic. Started patient on aspirin. Will continue to be on low dose daily from now on or until neurology says otherwise. Patient will f/u with her personal neurologist on Wednesday in [place]. If worse or is s/s happen again will go to her nearest hospital. 01/14 23:17 Order name: Magnesium; Complete Time: 00:04 01/14 23:17 Order name: Troponin (emerg Dept Use Only); Complete Time: 00:04 01/14 23:17 Order name: Basic Metabolic Panel; Complete Time: 00:04 01/14 23:17 Order name: CBC with Diff; Complete Time: 23:53 01/14 23:17 Order name: Protime (+inr); Complete Time: 00:04 01/14 23:17 Order name: Ptt, Activated; Complete Time: 00:04 01/14 23:17 Order name: CT Stroke Brain w/o Contrast 01/14 23:17 Order name: Stroke CXR 1 View 01/14 23:17 Order name: EKG; Complete Time: 23:19 01/14 23:17 Order name: Accucheck; Complete Time: 23:50 01/14 23:17 Order name: Cardiac monitoring; Complete Time: 23:50 01/14 23:17 Order name: EKG - Nurse/Tech; Complete Time: 23:50 01/14 23:17 Order name: IV Saline Lock; Complete Time: 23:50 01/14 23:17 Order name: Labs collected and sent; Complete Time: 23:50 01/14 23:17 Order name: NPO; Complete Time: 23:50 01/14 23:17 Order name: O2 Per Protocol; Complete Time: 23:50 01/14 23:17 Order name: O2 Sat Monitoring; Complete Time: 23:50 01/14 23:17 Order name: Stroke Swallow Screen; Complete Time: 23:50 Administered Medications: 01/14 23:57 Drug: Aspirin Chewable Tablet 324 mg Route: PO; tl2 01/15 00:00 Follow up: Response: No adverse reaction tl2 Point of Care Testing: Blood Glucose: 01/14 23:11 Blood Glucose: 125 mg/dL; fc Ranges: Critical Glucose Levels:Adult <50 mg/dl or >400 mg/dl <40 mg/dl or >180 mg/dl Disposition: 01/15/19 01:02 Discharged to Home. Impression: Transient cerebral ischemic attack, unspecified. - Condition is Stable. - Discharge Instructions: Stroke Prevention, Transient Ischemic Attack, Aspirin and Your Heart. - Medication Reconciliation Form, Thank You Letter, Antibiotic Education, Prescription Opioid Use form. - Follow up: Private Physician; When: 1 - 2 days; Reason: Recheck today's complaints, Continuance of care, Re-evaluation by your physician. - Problem is new. - Symptoms are resolved. NIH Stroke Scale - NIH Stroke Score Date: 01/14/2019 Time: 23:10 Total Score = 0 1a. Level of Consciousness (LOC) - 0(Alert) 1b. Level of Consciousness (LOC) (Year \T\ Age) - 0(Both) 1c. LOC Commands (Open \T\ Closes Eyes/Manager [employer]) - 0(Both) 2. Best Gaze (Lateral Gaze Paresis) - 0(Normal) 3. Visual Field Loss - 0(No visual loss) 4. Facial Palsy - 0(Normal) 5a. Left Arm: Motor (10-second hold) - 0(No drift) 5b. Right Arm: Motor (10-second hold) - 0(No drift) 6a. Left Leg: Motor (5-second hold - always test supine) - 0(No drift) 6b. Right Leg: Motor (5-second hold - always test supine) - 0(No drift) 7. Limb Ataxia (finger/nose \T\ heel/doan - test with eyes open) - 0(Absent) 8. Sensory Loss (pinprick arms/legs/face) - 0(Normal) 9. Best Language: Aphasia (description/naming/reading) - 0(No aphasia) 10. Dysarthria (speech clarity - read or repeat words) - 0(Normal) 11. Extinction and Inattention (visual/tactile/auditory/spatial/personal) - 0(No abnormality) Initials: NIH Stroke Scale - NIH Stroke Score Date: 01/14/2019 Time: 23:29 Total Score = 0 1a. Level of Consciousness (LOC) - 0(Alert) 1b. Level of Consciousness (LOC) (Year \T\ Age) - 0(Both) 1c. LOC Commands (Open \T\ Closes Eyes/[employer]) - 0(Both) 2. Best Gaze (Lateral Gaze Paresis) - 0(Normal) 3. Visual Field Loss - 0(No visual loss) 4. Facial Palsy - 0(Normal) 5a. Left Arm: Motor (10-second hold) - 0(No drift) 5b. Right Arm: Motor (10-second hold) - 0(No drift) 6a. Left Leg: Motor (5-second hold - always test supine) - 0(No drift) 6b. Right Leg: Motor (5-second hold - always test supine) - 0(No drift) 7. Limb Ataxia (finger/nose \T\ heel/doan - test with eyes open) - 0(Absent) 8. Sensory Loss (pinprick arms/legs/face) - 0(Normal) 9. Best Language: Aphasia (description/naming/reading) - 0(No aphasia) 10. Dysarthria (speech clarity - read or repeat words) - 0(Normal) 11. Extinction and Inattention (visual/tactile/auditory/spatial/personal) - 0(No abnormality) Initials: tl2 NIH Stroke Scale - NIH Stroke Score Date: 01/15/2019 Time: 00:38 Total Score = 0 1a. Level of Consciousness (LOC) - 0(Alert) 1b. Level of Consciousness (LOC) (Year \T\ Age) - 0(Both) 1c. LOC Commands (Open \T\ Closes Eyes/[employer]) - 0(Both) 2. Best Gaze (Lateral Gaze Paresis) - 0(Normal) 3. Visual Field Loss - 0(No visual loss) 4. Facial Palsy - 0(Normal) 5a. Left Arm: Motor (10-second hold) - 0(No drift) 5b. Right Arm: Motor (10-second hold) - 0(No drift) 6a. Left Leg: Motor (5-second hold - always test supine) - 0(No drift) 6b. Right Leg: Motor (5-second hold - always test supine) - 0(No drift) 7. Limb Ataxia (finger/nose \T\ heel/doan - test with eyes open) - 0(Absent) 8. Sensory Loss (pinprick arms/legs/face) - 0(Normal) 9. Best Language: Aphasia (description/naming/reading) - 0(No aphasia) 10. Dysarthria (speech clarity - read or repeat words) - 0(Normal) 11. Extinction and Inattention (visual/tactile/auditory/spatial/personal) - 0(No abnormality) Initials: jr8 Addendum: 01/16/2019 09:23 Co-signature as Attending Physician, Syed Fortune MD I agree with the [facility] assessment and plan of care. Signatures: Dispatcher [employer] EDSyed Leggett MD MD cha Chretien, Felicia RN RN Krishna Michaud PA PA jr8 Chayito Jesus RN RN tl2 Corrections: (The following items were deleted from the chart) 01/15 01:12 01:02 01/15/2019 01:02 Discharged to Home. Impression: Transient cerebral tl2 ischemic attack, unspecified. Condition is Stable. Forms are Medication Reconciliation Form, Thank You Letter, Antibiotic Education, Prescription Opioid Use. Follow up: Private Physician; When: 1 - 2 days; Reason: Recheck today's complaints, Continuance of care, Re-evaluation by your physician. Problem is new. Symptoms are resolved. jr8
--- NOTE | 2019-01-15 12:42 | RAD REPORT ---
EXAM DESCRIPTION: RAD - Chest Single View - 01/14/2019 11:38 pm CLINICAL HISTORY: TIA, Stroke protocol chest film COMPARISON: None. TECHNIQUE: AP portable chest image was obtained 2334 hours . FINDINGS: No focal mass or consolidation. Interstitial markings are mildly prominent believed be bas jacki. Failure and volume overload are not suspected. Heart size is upper normal. Vasculature within normal limits. Trachea is midline. No measurable pleu ral effusion and no pneumothorax. No acute bony abnormality seen. No acute aortic findings suspected. IMPRESSION: No acute cardiopulmonary process.
--- NOTE | 2019-01-16 07:46 | EKG ---
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
--- NOTE | 2019-01-16 13:23 | RAD REPORT ---
EXAM DESCRIPTION: CT - Ct Stroke Brain Wo Cont - 01/14/2019 11:43 pm CLINICAL HISTORY: Confused;TIA COMPARISON: None Available. TECHNIQUE: Multiple helical axial tomographic images were obtained of the head without intravenous c ontrast. This exam was performed according to our departmental dose-optimization program, which inclu david automated exposure control, adjustment of the mA and/or kV according to patient size and/or use o f iterative reconstruction technique. FINDINGS: Embolization coil in the right suprasellar region noted. Streak artifact from the emboliza tion coil mildly limits the evaluation of the brain at the level of the middle cranial fossa. There i s no acute intracranial hemorrhage. No mass. No midline shift. No ventriculomegaly. Montoya-white matter differentiation is maintained. Paranasal sinuses are clear. Mastoid air cells and middle ear spaces are clear. Orbits and orbital co ntents are unremarkable. Osseous structures are unremarkable. Surrounding soft tissues are unremarkable. IMPRESSION: No acute intracranial process within the limits of the study. THIS REPORT CONTAINS FINDINGS THAT MAY BE CRITICAL TO PATIENT CARE: The findings were verbally discu ssed via telephone conference with Dr. Michaud by Dr. Sadler at 2338 hours central time on January 14, 2019 . The results were acknowledged and understood. Electronically signed by: Andrew Sadler MD 01/14/2019 11:39 PM CDT Due to temporary technical issues with the PACS/Fluency reporting system, reports are being signed by the in house radiologist as a courtesy to ensure prompt reporting. The interpreting radiologist is f ully responsible for the content of the report.
== END 2019-01-15 01:12 | disposition home or self-care (01) ==
LOC: ER 23:03
DX: G45.9 Transient cerebral ischemic attack, unspecified (principal); I10 Essential (primary) hypertension
CPT/HCPCS: 36415; 70450; 71045; 80048; 82962; 83735; 84484; 85025; 85610; 85730; 93005; 99285